=== PATIENT | male | born 2000 | race Caucasian/White ===

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

== ENCOUNTER 2019-02-11 15:19 | Emergency (ER) | payer MEDICAID, SELFPAY ==
[2019-02-11 15:23] VITALS: BP 141/80; PULSE 77; RESP 16; TEMP 36.7; O2SAT 98
--- NOTE | 2019-02-11 15:49 | ED.GENADUL_ITS ---
Discharge Plan Disposition Patient Disposition: HOME Condition: Good Discharge Details Chief Complaint: GenMedical Clinical Impression: Rectal bleed Primary Care Provider: Pamela Fregoso V ED Provider: Oliverio Dixon Home Meds and New Rx's Prescriptions: No Action hydroxyzine HCl 50 mg tablet 50 mg PO BID PRN (Reason: itching) Qty: 90 RF: 0 sertraline 100 mg tablet 100 mg PO DAILY Qty: 90 RF: 0 trazodone 50 mg tablet 50 mg PO QHS PRN (Reason: insomnia) Qty: 30 RF: 0 Discharge Instructions Instructions: Rectal Bleeding (ED) Additional Instructions: At this time there is no current evidence of bleeding. It is likely that you had a small hemorrhoid that caused the symptoms however you do need a colonoscopy for further evaluation of your colon to rule out more concerning etiologies. Please make sure to keep your stool soft by taking a pill of Colace every day. Drink plenty of fluids, follow-up closely with your PCP. We will schedule a surgical follow-up for you. If you notice any worsening of your symptoms, or any new symptoms such as vomiting, diarrhea, fever, chills, brock rtness of breath, chest pain, numbness, weakness, or fainting , please return immediately to the emergency department for reevaluation. Please follow up with your primary care provider as soon as possible for reassessment and reevaluation. As always, it was a pleasure participating in your medical care today. Referrals: Pamela Fregoso MD [Primary Care Provider] - Medical Decision Making This is a pleasant 18-year-old male who presents today for blood in his stools. Patient states that today he had some occasional hard stools, noticed some blood on his stools and in the toilet bowl and on the toilet paper, and then a subsequent episode of small amounts of what he felt blood clots that he defecated out. He had no pain cramping or searing sensation with any of this. He denies any recent rectal probing, anal intercourse, history of GI bleed, history of Crohn's or ulcerative colitis or colon cancer. Physical exam demonstrates an unremarkable rectal exam, no evidence of gross blood on digital rectal exam. Stool Hemoccult test was negative. Vital signs are notably benign, no evidence of significant anemia. With an unremarkable exam, negative stool Hemoccult, no blood on rectal exam, no other abnormalities I discussed options of imaging, labs, and outpatient evaluation. At this time through shared decision making process weighing the risks and benefits patient has requested to hold off in any additional labs or imaging, would like to follow-up with the surgeon. We had a long discussion regarding red flags for which to return for additional work-up. Signs and symptoms at this time appear most clinically consistent with internal or external hemorrhoid with subsequent rupture. With a benign abdominal exam signs and symptoms appear clinically inconsistent with an acute surgical abdomen requiring further intervention or imaging at this time. I have extensively reviewed the treatment plan and discharge instructions with the patient. I have addressed all patient concerns at this time. The patient was made aware of what symptoms to monitor for that would warrant a return to the emergency department. Discussed the plan with the patient, they demonstrate verbal understanding and agreement with our assessment and plan at this time. HPI General Date/Time Provider Initiated Documentation: 02/11/19 15:31 . HPI Narrative: This is a pleasant 18-year-old male with no significant past medical history who presents today for evaluation of blood in his stool. Patient states that occasionally he will have hard and soft stools, and then this morning after some harder stool he noticed some blood, initially on his toilet paper in his stool, however he had a second episode not too long later which felt to be more like pooping small clots. He has not had any bowel movement since then. He denies any abdominal pain, rectal pain, searing pain in his rectum. He denies any family history of colon cancer. He denies any vomiting or diarrhea. He denies any history of irritable bowel syndrome, colitis, Crohn's disease. Aside for his aforementioned symptoms he has no other complaints at this time. No other modifying factors. He denies any history of rectal bleeding in the past. He denies any history of anal intercourse. Related Data Home Medications Medication Instructions Recorded Confirmed hydroxyzine HCl 50 mg tablet 50 mg PO BID PRN #90 tab 02/10/19 02/11/19 sertraline 100 mg tablet 100 mg PO DAILY #90 tab 02/10/19 02/11/19 trazodone 50 mg tablet 50 mg PO QHS PRN #30 tab 02/10/19 02/11/19 Previous Rx's Medication Instructions Recorded hydroxyzine HCl 50 mg tablet 50 mg PO BID PRN #90 tab 02/10/19 sertraline 100 mg tablet 100 mg PO DAILY #90 tab 02/10/19 trazodone 50 mg tablet 50 mg PO QHS PRN #30 tab 02/10/19 Allergies Allergy/AdvReac Type Severity Reaction Status Date / Time No Known Allergies Allergy Verified 02/11/19 15:30 General Stated Complaint: GenMedical CHI: 3 Review of Systems Review of Systems All systems reviewed & are unremarkable except as noted in HPI and below PFSH Social History Smoking/Tobacco Use Status: Current every day Tobacco Type: cigarettes Alcohol Intake: current Alcohol Intake frequency: a few times a month Drug use: Daily Substance use type: marijuana Details: a little last night Do you feel safe at home: Yes Do you feel safe in your relationship?: Yes Exam Narrative Exam Narrative: 1.Const: Well-nourished, Well-developed, appearing stated age 2.Eyes: PERRL, no conjunctival injection, and symmetrical lids. 3.ENT: Atraumatic external nose and ears. Moist MM. Neck: Symmetric, trachea midline, No thyromegaly. 4.CVS: +S1/S2, No murmurs or gallops. Peripheral pulses 2+ and equal in all extremities. Brisk capillary refill in all extremities. 5.RESP: Unlabored respiratory effort. Clear to auscultation bilaterally. No wheezes rales or rhonchi 6.GI: Soft, Nontender/Nondistended, No hepatosplenomegaly. No guarding or rebound. Rectal exam demonstrates normal male rectum, no evidence of significant anal fissure, no signs of large prolapsed hemorrhoid. No gross blood or melena. Stool Hemoccult test is negative. 7.MSK: Normocephalic/Atraumatic, Extremities w/o deformity or ttp No cyanosis or clubbing, Normal movement of all extremities 8.Skin: Warm, Dry. No rashes or lesions. 9.Neuro: [facility] II-XII grossly intact. Sensation grossly intact, no focal neurologic deficits. 10.Psych: (AAO) x3. Appropriate mood and affect Course Vital Signs Temperature 36.7 C 02/11/19 15:23 Pulse 77 02/11/19 15:23 Respiratory Rate 16 02/11/19 15:23 Blood Pressure 141/80 H 02/11/19 15:23 Pulse Oximetry 98 02/11/19 15:23 Temperature 36.7 C 02/11/19 15:23 Temperature Source Skin 02/11/19 15:23 Pulse 77 02/11/19 15:23 Respiratory Rate 16 02/11/19 15:23 Respiratory Effort Non-Labored 02/11/19 15:29 Blood Pressure 141/80 H 02/11/19 15:23 Blood Pressure Position Sitting 02/11/19 15:23 Pulse Oximetry 98 02/11/19 15:23 Oxygen Delivery Method Room Air 02/11/19 15:23 Oxygen Flow Rate 0 02/11/19 15:23
--- NOTE | 2019-02-11 15:54 | NUR.NOTE ---
freferral faxed to [facility]ing Note:
[2019-02-11 16:00] VITALS: BP 141/80; PULSE 77; RESP 16; TEMP 36.7; O2SAT 98
[2019-02-11 18:06] VITALS: RESP 16
== END 2019-02-11 16:00 | disposition home or self-care (01) ==
PROVIDERS: Emergency Provider Student in an Organized Health Care Education/Training Program; PCP Pediatrics
DX: K62.5 Hemorrhage of anus and rectum (principal)
CPT/HCPCS: 99282

== ENCOUNTER 2020-04-30 08:46 | Outpatient (CLI) | payer MEDICAID, SELFPAY ==
[2020-05-02 22:52] LABS: Patient Race White; SARS-CoV-2 RNA Undetected (Undetected); SARS-CoV-2 Specimen Source Nasal
== END 2020-04-30 09:06 ==
PROVIDERS: PCP Pediatrics; Visit Provider Pediatrics
DX: Z11.59 Encounter for screening for other viral diseases (principal)
CPT/HCPCS: U0003

== ENCOUNTER 2021-10-10 19:04 | Outpatient (REF) | payer MEDICAID, SELFPAY ==
[2021-10-10 15:16] LABS: Abs Immature Grans 0.04 10^3/uL (0.0-0.06); Absolute Basophil Count 0.05 10^3/uL (0.0-0.2); Absolute Eosinophil Count 0.34 10^3/uL (0.0-0.7); Absolute Lymphocyte Count 2.15 10^3/uL (1.2-3.4); Absolute Monocyte Count 0.91 10^3/uL (0.1-0.8); Absolute Neutrophil Count 3.59 10^3/uL (1.2-6.7); Basophils % 0.7; Eosinophils % 4.8; HCT 43.9 % (40.0-50.0); HGB 15.3 g/dL (13.5-17.5); Immature Grans % 0.6; Lymphocytes % 30.4; MCH 32.1 pg (27.0-33.0); MCHC 34.9 % (32.0-36.0); MCV 92 fL (80-95); MPV 9.7 fL (8.0-11.0); Monocytes % 12.9; Neutrophils % 50.6; Platelet Count 342 10^3/uL (130-400); RBC 4.77 10^6/uL (4.36-5.78); RDW 12.1 % (11.8-14.1); RDW-SD 41.3 fL; WBC 7.08 10^3/uL (4.4-10.8)
[2021-10-10 15:35] LABS: ALT 82 U/L (16-63); AST 37 U/L (15-37); Albumin 4.2 g/dL (3.4-5.0); Alkaline Phosphatase 89 U/L (46-116); BUN 8 mg/dL (7-18); Bilirubin, Total 0.8 mg/dL (0.2-1.0); CREATININE 0.9 mg/dL (0.70-1.30); Calcium 9.2 mg/dL (8.5-10.1); Chloride 104 mmol/L (98-107); Glucose 93 mg/dL (74-106); Potassium 4.5 mmol/L (3.5-5.1); Sodium 139 mmol/L (136-145); TSH 2.23 uIU/mL (0.36-3.74); Total Protein 7.6 g/dL (6.4-8.2)
== END 2021-10-10 19:05 | disposition home or self-care (01) ==
LOC: NCHCN 19:04
PROVIDERS: Visit Provider Nurse Practitioner Family
DX: F41.8 Other specified anxiety disorders (principal); F12.10 Cannabis abuse, uncomplicated; F10.10 Alcohol abuse, uncomplicated; Z00.00 Encounter for general adult medical examination without abnormal findings
CPT/HCPCS: 80053; 84443; 85025

== ENCOUNTER 2022-01-22 16:41 | Outpatient (REF) | payer MEDICAID, SELFPAY ==
[2022-01-22 17:22] LABS: ALT 56 U/L (16-63); AST 44 U/L (15-37); Alkaline Phosphatase 78 U/L (46-116); Anion Gap 11.6 mmol/L (3-11); BUN 12 mg/dL (7-18); CO2 24.4 mmol/L (21.0-32.0); CREATININE 0.8 mg/dL (0.70-1.30); Calcium 9.1 mg/dL (8.5-10.1); Chloride 104 mmol/L (98-107); Glucose 102 mg/dL (74-106); Potassium 4.4 mmol/L (3.5-5.1); Sodium 140 mmol/L (136-145); Total Protein 7.4 g/dL (6.4-8.2)
[2022-01-23 08:07] LABS: HBs Antibody, Quant 4.2 mIU/mL (See Note); Hepatitis B Surface Ab Negative (See Note)
[2022-01-23 08:15] LABS: Hepatitis B Surface Ag Negative (Negative)
[2022-01-23 09:00] LABS: Hepatitis C Ab w Rflx HCV PCR Negative (Negative)
[2022-01-23 09:11] LABS: HIV-1/2 Ag & Ab Screen Negative (Negative)
[2022-01-23 10:43] LABS: Syphilis Serology (RPR) Negative (Negative)
[2022-01-23 15:11] LABS: Chlamydia Result Negative (Negative); GC Result Negative (Negative)
== END 2022-01-22 16:42 | disposition home or self-care (01) ==
LOC: NCHCN 16:41
PROVIDERS: Visit Provider Nurse Practitioner Family
DX: Z11.3 Encounter for screening for infections with a predominantly sexual mode of transmission (principal); F10.10 Alcohol abuse, uncomplicated; F41.8 Other specified anxiety disorders; R79.89 Other specified abnormal findings of blood chemistry
CPT/HCPCS: 80053; 86706; 86803; 87340; 87389; 87491; 87591; 86592

== ENCOUNTER 2022-07-16 11:18 | Outpatient (REF) | payer MEDICAID, SELFPAY ==
[2022-07-16 15:21] LABS: Abs Immature Grans 0.02 10^3/uL (0.0-0.06); Absolute Basophil Count 0.04 10^3/uL (0.0-0.2); Absolute Eosinophil Count 0.28 10^3/uL (0.0-0.7); Absolute Lymphocyte Count 1.94 10^3/uL (1.2-3.4); Absolute Monocyte Count 0.75 10^3/uL (0.1-0.8); Absolute Neutrophil Count 2.74 10^3/uL (1.2-6.7); Basophils % 0.7; Eosinophils % 4.9; HCT 41.4 % (40.0-50.0); HGB 14.1 g/dL (13.5-17.5); Immature Grans % 0.3; Lymphocytes % 33.6; MCHC 34.1 % (32.0-36.0); MCV 88 fL (80-95); MPV 10.5 fL (8.0-11.0); Neutrophils % 47.5; Platelet Count 268 10^3/uL (130-400); RDW 12.7 % (11.8-14.1); RDW-SD 41.2 fL; WBC 5.77 10^3/uL (4.4-10.8)
[2022-07-16 15:47] LABS: ALT 22 U/L (16-63); AST 23 U/L (15-37); Albumin 4.2 g/dL (3.4-5.0); Alkaline Phosphatase 64 U/L (46-116); Anion Gap 6.9 mmol/L (3-11); BUN 10 mg/dL (7-18); Bilirubin, Total 0.8 mg/dL (0.2-1.0); CO2 27.1 mmol/L (21.0-32.0); CREATININE 0.9 mg/dL (0.70-1.30); Calcium 9.7 mg/dL (8.5-10.1); Chloride 106 mmol/L (98-107); Estimated GFR 123.07 (mL/min/1.73m2); Glucose 98 mg/dL (74-106); Potassium 4.4 mmol/L (3.5-5.1); Sodium 140 mmol/L (136-145); TSH (W/Ref FT4) 1.13 uIU/mL (0.36-3.74); Total Protein 7.1 g/dL (6.4-8.2)
== END 2022-07-16 11:19 | disposition home or self-care (01) ==
LOC: NCHCN 11:18
PROVIDERS: Visit Provider Nurse Practitioner Family
DX: R79.89 Other specified abnormal findings of blood chemistry (principal); F41.8 Other specified anxiety disorders; R63.4 Abnormal weight loss; F10.10 Alcohol abuse, uncomplicated
CPT/HCPCS: 80053; 84443; 85025

== ENCOUNTER 2023-04-13 16:13 | Outpatient (REF) | payer MEDICAID, SELFPAY ==
[2023-04-13 16:18] LABS: Abs Immature Grans 0.01 10^3/uL (0.0-0.06); Absolute Basophil Count 0.04 10^3/uL (0.0-0.2); Absolute Eosinophil Count 0.35 10^3/uL (0.0-0.7); Absolute Monocyte Count 0.52 10^3/uL (0.1-0.8); Absolute Neutrophil Count 1.92 10^3/uL (1.2-6.7); Basophils % 0.9; Eosinophils % 7.5; HCT 40.1 % (40.0-50.0); HGB 14.2 g/dL (13.5-17.5); Immature Grans % 0.2; Lymphocytes % 38.8; MCH 32.1 pg (27.0-33.0); MCHC 35.4 % (32.0-36.0); MCV 91 fL (80-95); MPV 10.1 fL (8.0-11.0); Monocytes % 11.2; Neutrophils % 41.4; Platelet Count 231 10^3/uL (130-400); RBC 4.43 10^6/uL (4.36-5.78); RDW 12.8 % (11.8-14.1); RDW-SD 42.4 fL; WBC 4.64 10^3/uL (4.4-10.8)
[2023-04-13 17:04] LABS: ALT 41 U/L (16-63); AST 29 U/L (15-37); Alkaline Phosphatase 61 U/L (46-116); Anion Gap 9.1 mmol/L (3-11); BUN 22 mg/dL (7-18); Bilirubin, Total 1.1 mg/dL (0.2-1.0); CO2 26.9 mmol/L (21.0-32.0); Calcium 9.3 mg/dL (8.5-10.1); Chloride 109 mmol/L (98-107); Estimated GFR 108.46 (mL/min/1.73m2); Glucose 87 mg/dL (74-106); Potassium 4.4 mmol/L (3.5-5.1); Sodium 145 mmol/L (136-145); TSH (W/Ref FT4) 0.89 uIU/mL (0.36-3.74); Total Protein 6.7 g/dL (6.4-8.2)
== END 2023-04-13 16:14 | disposition home or self-care (01) ==
LOC: NCHCN 16:13
PROVIDERS: Visit Provider Nurse Practitioner Family
DX: F10.11 Alcohol abuse, in remission (principal); F41.8 Other specified anxiety disorders; F17.210 Nicotine dependence, cigarettes, uncomplicated
CPT/HCPCS: 80053; 84443; 85025

== ENCOUNTER 2023-09-10 21:50 | Emergency (ER) | payer MEDICAID, SELFPAY ==
[2023-09-10 21:52] VITALS: BP 155/78; PULSE 90; RESP 16; TEMP 36.1; O2SAT 100
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
[2023-09-10] MEDS: Ketorolac 15 MG/ML VIAL IM (22:26)
[2023-09-10] MEDS: Bacitracin 30 GM TUBE TP (22:27)
[2023-09-10 22:43] VITALS: RESP 18
== END 2023-09-10 22:47 | disposition home or self-care (01) ==
LOC: ER 22:24
PROVIDERS: Emergency Provider Emergency Medicine
DX: T23.121A Burn of first degree of single right finger (nail) except thumb, initial encounter (principal); T31.0 Burns involving less than 10% of body surface; F17.210 Nicotine dependence, cigarettes, uncomplicated; X10.2XXA Contact with fats and cooking oils, initial encounter; Y93.G3 Activity, cooking and baking
CPT/HCPCS: 99283; J1885

== ENCOUNTER 2024-02-23 11:50 | Emergency (ER) | payer MEDICAID, SELFPAY ==
[2024-02-23 11:52] VITALS: BP 152/109; PULSE 110; RESP 16; TEMP 36.4; O2SAT 97
--- NOTE | 2024-02-23 12:24 | W.ED.GENAD ---
Discharge Plan Disposition Patient Disposition: Home Condition: Stable Discharge Details Clinical Impression: Alcohol abuse Primary Care Provider: XIOMARA MURRY ED Provider: Yahir Hernandez Home Meds and New Rx's Prescriptions: New chlordiazepoxide HCl 25 mg capsule See Rx Instructions .ROUTE .COMPLEX PRNQty: 15 0RF Rx Instructions: take 50mg every 6 hours for 1 day, then 25mg every 6 hours on day 2, then 25mg every 12 hours on day 3 and then 25mg at night on day 4 Continued citalopram 20 mg tablet 20 mg PO DAILY Patient Comments: TAKE ONE TABLET BY MOUTH EVERY DAY albuterol sulfate [Ventolin HFA] 90 mcg/actuation HFA aerosol inhaler 2 inh INHALATION Q6H PRN Patient Comments: INHALE ONE TO TWO PUFFS BY MOUTH EVERY 4 TO 6 HOURS NEEDED Discharge Instructions Additional Instructions: do not drink alcohol while taking librium follow up with your primary care provider and also reach out to detox centers if you feel more ill or have thoughts of self harm return to the emergency department HPI General Mode of arrival: ambulatory. Date/Time Provider Initiated Documentation: 02/23/24 11:52. Limitations to Documentation: no limitations. Information obtained by: patient. History of Present Illness 23 year old M presents to the emergency department with the chief complaint of excessive alcohol use, described as severe, Patient started experiencing this year(s) (1) and it has been constant. No relieving factors improve symptom(s), No exacerbating factors reported . Patient notes denies chest pain, fever/chills and shortness of breath. Patient did receive the following treatments prior to arrival, none Related Data Home Medications ?Medication ?Instructions ?Recorded ?Confirmed albuterol sulfate 90 mcg/actuation 2 inh inhalation Q6H PRN 09/10/23 02/23/24 aerosol inhaler (Ventolin HFA) citalopram 20 mg tablet 20 mg PO DAILY 09/10/23 02/23/24 chlordiazepoxide HCl 25 mg capsule See Rx Instructions .Route 02/23/24 .COMPLEX PRN #15 caps Previous Rx's ?Medication ?Instructions ?Recorded chlordiazepoxide HCl 25 mg capsule See Rx Instructions .Route 02/23/24 .COMPLEX PRN #15 caps Allergies Allergy/AdvReac Type Severity Reaction Status Date / Time No Known Allergies Allergy Verified 02/23/24 11:58 General Stated Complaint: ETOHWithdr CHI: 2 Review of Systems All systems reviewed & are unremarkable except as noted in HPI and below Constitutional Constitutional: Denies chills, Denies fever(s) and Denies weakness Cardiovascular Cardiovascular: Denies chest pain and Denies dyspnea Respiratory Respiratory: Denies cough and Denies dyspnea Gastrointestinal Gastrointestinal: Denies abdominal pain, Denies nausea and Denies vomiting Musculoskeletal Musculoskeletal: Denies joint swelling Neurologic Neurologic: Denies weakness Psychiatric Psychiatric: Denies depression and Reports other (depression) Course Vital Signs Vital signs: Vital Signs Temperature 36.4 C 02/23/24 11:52 Pulse 110 H 02/23/24 11:52 Respiratory Rate 16 02/23/24 11:52 Blood Pressure 152/109 H 02/23/24 11:52 Pulse Oximetry 97 02/23/24 11:52 Temperature 36.4 C 02/23/24 11:52 Temperature Source Skin 02/23/24 11:52 Pulse 110 H 02/23/24 11:52 Respiratory Rate 16 02/23/24 11:52 Blood Pressure 152/109 H 02/23/24 11:52 Blood Pressure Position Sitting 02/23/24 11:52 Pulse Oximetry 97 02/23/24 11:52 Oxygen Delivery Method Room Air 02/23/24 11:52 Oxygen Flow Rate 0 02/23/24 11:52 Medical Decision Making 23-year-old male who states he has been drinking heavily for over a year, states he drinks at least a hard alcohol a day comes in with concerns states that he did much entirely interested in ways to stop. He also has noted some depression and thoughts of self-harm though he does have a specific plan. He says that he last drink this morning, he is currently clinically sober, oriented x 4 with a normal gait, has no tremors or other concerning findings at this time. Abdomen is soft and nontender. Given his statements that he has been depressed and having thoughts of potential self-harm will check a CBC, CMP, alcohol level, acetaminophen and salicylate level. Will keep him on CIWA precautions and give a dose of Librium as he states he normally does start developing signs of withdrawal after few hours of drinking alcohol. Will have it disaster recovery manager meet with him and a once medically cleared to have mental health evaluate him. Patient has been stable, labs unremarkable other than alcohol of over 200 which is surprising given he is clinically sober. He feels better after Librium after further discussion with him he denies any active suicidal. He says he does get depressed here and there when he realizes how [id number] his drinking spent. He met with it disaster recovery manager. He does not want to wait to speak with an [facility] and given the no specific plan when he passed earlier and main issue is depression and alcohol abuse do not feel he needs to be staying or have enough to do an involuntary hold of him. I discussed with him a Librium taper as an outpatient and he is willing to try this and knows that he cannot drink alcohol while taking this. Differential Diagnosis Differential Diagnosis: Alcohol abuse, depression Lab Data Lab results reviewed: Yes I reviewed the patient's lab results. Quality:SDOH Health Related Social Needs: No Data to Display PFSH All Active Problems (Updated 10/11/23 @ 00:06 by MEG STALLINGS) Alcohol abuse (Chronic) Substance use disorder (Chronic) Chronic marijuana use. + CRAFFT for alcohol use Anxiety (Acute) Medical History (Updated 10/11/23 @ 00:06 by MEG STALLINGS) Closed right arm fracture Closed left arm fracture X2 Varicella AGE 4 Family History Mother No problems noted. Father Essential hypertension Hyperlipidemia Other ALS (amyotrophic lateral sclerosis) paternal Alcohol abuse paternal, maternal Essential hypertension paternal Personal history of malignant neoplasm PGF-skin Heart disease glaufgbd-aenizsqubmfmbw-GTBH - goes thru the male line paternal cousin with SVT Hyperlipidemia PGM Mental disorder pat uncle- anxiety, pat great uncle commited suicide Myocardial infarction PGF, maternal side Stroke PGGF Cardiomyopathy PGF-ZEUS, all of his siblings as well Asthma brother-outgrown, paternal side Social History Smoking/Tobacco Use Status: Current every day Tobacco Type: cigarettes Smoking risk assessment performed?: Yes Alcohol Intake: current Alcohol Intake frequency: 3 or more drinks per day Drug use: Occasionally Substance use type: marijuana Details: a little last night Do you feel safe at home: Yes Do you feel safe in your relationship?: Yes
[2024-02-23 12:25] LABS: Bilirubin Negative (Negative); Blood Negative (Negative); Clarity Clear (Clear); Glucose Negative (Negative); Ketones Negative (Negative); Leukocyte Esterase Negative (Negative); Nitrite Negative (Negative); Specific Gravity 1.015 (1.005-1.025); Urobilinogen 0.2 mg/dL (Up to 0.2)
[2024-02-23 12:33] LABS: Abs Immature Grans 0.02 10^3/uL (0.0-0.06); Absolute Basophil Count 0.05 10^3/uL (0.0-0.2); Absolute Eosinophil Count 0.09 10^3/uL (0.0-0.7); Absolute Lymphocyte Count 1.86 10^3/uL (1.2-3.4); Absolute Monocyte Count 0.82 10^3/uL (0.1-0.8); Absolute Neutrophil Count 2.78 10^3/uL (1.2-6.7); Basophils % 0.9 %; Eosinophils % 1.6 %; HCT 46.4 % (40.0-50.0); HGB 16.2 g/dL (13.5-17.5); Immature Grans % 0.4 %; Lymphocytes % 33.1 %; MCH 32.4 pg (27.0-33.0); MCHC 34.9 % (32.0-36.0); MCV 93 fL (80-95); MPV 8.4 fL (8.0-11.0); Monocytes % 14.6 %; Neutrophils % 49.4 %; Platelet Count 253 10^3/uL (130-400); RDW-SD 44.2 fL; WBC 5.62 10^3/uL (4.4-10.8)
[2024-02-23 12:34] LABS: *AMPHETAMINES SCREEN URINE Negative (Negative); *BARBITURATES SCREEN URINE Negative (Negative); *BENZODIAZEPINES SCREEN URINE Negative (Negative); Cannabinoids THC Negative (Negative); Cocaine Screen,Urine Negative (Negative); OPIATES URINE SCREEN Negative (Negative); Tricyclic Antidepressants Negative (Negative)
[2024-02-23] MEDS: chlordiazePOXIDE 25 MG CAP 50 MG PO (12:37)
[2024-02-23 13:08] LABS: Acetaminophen < 2 ug/mL (10-30); Salicylate < 2.8 mg/dL (<2.8)
[2024-02-23 13:16] LABS: ETHANOL BLOOD 295.9 mg/dL (<10); TSH (W/Ref FT4) 1.23 uIU/mL (0.36-3.74)
[2024-02-23] MEDS: Nicotine 21 MG/24 HR PATCH TD (13:18)
--- OUTSIDE RECORDS SUMMARY | 2024-02-23 13:26 | XMS_ITS | Encounter Summary ---
Author Organization [facility] Address [address] [place] [address] Care Team Providers Care Raw Mill Operator Name Role Phone Unknown, Provider Primary Care Provider [phone] Encounter Details Date Type Department Care Team (Late st Contact Info) Description 01/22/2022 Lab Requisition [facility] Pathology & Laboratory Medicine - [facility] [address] [place] [address] Outr Resulting Lab, Provider Social History Tobacco Use Types Packs/Day Years Used Date Smoking Tobacco: Never Assessed Sex and Gender Information Value Date Recorded Sex Assigned at Not on file Gender Identity Not on file Sexual Orientation Not on file documented as of this encounter Plan of Treatment Not on file documented as of this encounter Procedures Procedure Name Priority Date/Time Associated Diagnosis Comments HIV 1/2 ANTIGEN AND ANTIBODY, 4TH GENERATION Routine 01/22/2022 10:45 EDT documented in this encounter Results * HIV 1/2 ANTIGEN AND ANTIBODY, 4TH GENERATION (01/22/2022 10:45 EDT) HIV 1 and 2 Antibody/p24 Antigen, 4th Generation Negative Negative 01/23/2022 9:[address] [facility] Comment:If acute HIV-1 infec tion is suspected in a high risk patient, submit plasma specimen for HIV-1 RNA quantitation test. Blood VENOUS BLOOD / Unknown 01/22/2022 10:45 EDT 01/22/2022 21:[address] [facility] - 01/23/2022 9:07 EDT Fourth Generation assay performed on the Siemens VideoSurfaur XPT. Provider Outr Resulting Lab IMMUNOLOGY A ND SEROLOGY ORDERABLES [facility] [address] [place] [address] documented in this encounter Visit Diagnoses Not on filedocumented in this encounter Care Teams Raw Mill Operator Relationship Specialty Start Date End Date Unknown, Provider, PCP - General 12/18/18 documented as of this encounter
--- OUTSIDE RECORDS SUMMARY | 2024-02-23 13:26 | XMS_ITS | Encounter Summary ---
Author Organization [facility] Address [facility] [place] [address] Care Team Providers Care Gluer Machine Operator Name Role Phone Zenobia Martin MD, Pamela Primary Care Provider Reason for Visit * Reason Comments Other FAM HX CM Encounter Details Date Type Department Care Team (Latest Contact Info) Description 01/11/2016 3:00 PM EDT Office Visit Pediatric Cardiology at [facility] [place] [phone] Ayush Taveras MD [facility] [address] [place] [address] Family history of cardiomyopathy Social History Tobacco Use Types Packs/Day Years Used Date Smoking Tobacco: Passive Smo ke Exposure - Never Smoker Smokeless Tobacco: Never Sex and Gender Information Value Date Recorded Sex Assigned at Not on file Gender Identity Not on file Sexual Orientation Not on file documented as of this encounter Last Filed Vital Signs Vital Sign Reading Time Taken Comments Blood Pressure 134/72 01/11/2016 3:02 PM EDT Pulse 73 01/11/2016 3:02 PM EDT Temperature - - Respiratory Rate 16 01/11/2016 3:02 PM EDT Oxygen Saturation 100% 01/11/2016 3:02 PM EDT Inhaled Oxygen Concentration - - Weight 105.7 kg (233 lb 0.4 oz) 01/11/2016 3:02 PM EDT Height 176.5 cm (5' 9.49) 01/11/2016 3:02 PM ED T Body Mass Index 33.93 01/11/2016 3:02 PM EDT Body Mass Index Percentile 98.23% 01/11/2016 3:0 2 PM EDT Growth Chart: CDC (Boys, 2-2 0 Years) documented in this encounter Patient Instructions * Patient Instructions* Ayush Taveras MD - 01/11/2016 3:00 PM EDT Assessment: Dionicio appears normal from the cardiovascular standpoint with no evidence for heart disease. The echocardiogram today is normal and is reassuring, with no evidence for a cardiomyopathy. We previously discussed the role in gene testing in relatives of patients with HCM. The grandfatheris the index case, and has been able to have gene testing covered by his insurer (Medicare). We again discussed this at length today. With Dionicio's family history and without genetic testing, we must consider him to be at 25% risk ofdeveloping HCM. As he gets older, the likelihood of HCM becoming apparent gets less, but will neverbe zero. Continued surveillance with echocardiography is therefore indicated. Recommendations: I have recommended gene testing as the preferred approach, and scheduled screening by echocardiography if gene testing is not available, or if the grandfather had a negative test. There is no indication at this time for any limitations or restrictions in Dionicio' activity. SBE precautions are not indicated. Follow-up: Two years with echocardiogram. documented in this encounter Progress Notes * Ayush Taveras MD - 01/11/2016 3:00 PM EDT Images from the original note were not included. Patient: Primary Care Provider: Requesting Provider: Dionicio Wilkinson [address] [facility] [phone] PAMELA FREGOSO MD (Inactive) [address] [facility] [address] Pamela Fregoso Md [address] [place] [address] (home) : 2000 Age/Gender: 15 y.o. male Dionicio is a 15 y.o. old ( 2000) child seen in the Pediatric Cardiology Clinic at [facility] on 01/11/2016 with the following problems: Patient Active Problem List Diagnosis ??? FHx: atrial fibrillation Paternal grandfather diagnosed with atrial fibrillation in 2002. Reports taking metoprolol and warfarin for 'years' ??? FHx: melanoma PGF and his siblings ??? Family history of cardiomyopathy PGF, Holden Wilkinson (: 06-30-1937) diagnosed with mildly obstructive hypertrophic cardiomyopathy in 2000. Last echo in 2011: left ventricle asymetric, septal hypertrophy without LV outflow tract obstruction. Estimated LVEF = 75%. Both atria are greatly dilated. RV is normal. 08-31-15 Genetic testin g not done due to cost per Father. There is a family history of premature deaths from heart disease, but no other family member diagnosed with HCM. The PGF has 3 male children who were screened around the time of his diagnosis; all were reportedlynormal. Neither has been diagnosed with HCM. There is also a daughter who has not been screened, although she was treated at [facility] for breast cancer. Father, Mauro Wilkinson (: 07-28-1971) had echo as teen (reported normal) and on 09-15-14 @ [facility]: normal study. The left ventricular sizethickness and function was normal. Estimated ejection fraction was 60-65%. No wall motion abnormalities ??? Fracture of left forearm x2 ??? Fracture of right forearm x1 ??? Delayed immunizations Interim History: Dionicio has been a healthy child since the last visit with no symptoms referable to the cardiovascular system. Dionicio has had no complaints of chest pain, dyspnea, fatigue, palpitations and syncope. He has a normal exercise tolerance with no difficulty keeping up with his peers. Dionicio has had no recent hospitalizations or surgery. Family History: Dionicio is here today with his grandfather. Additional details of the family history as noted in theProblem List. Physical Exam: Vitals: 01/11/16 1502 BP: 134/72 BP Location (NBP): Right arm Pulse: 73 Resp: 16 SpO2: 100% Weight: (!) 105.7 kg (233 lb 0.4 oz) Height: 176.5 cm (5' 9.49) >99 %ile based on CDC 2-20 Years [id number] data using vitals from 01/11/2016. 60 %ile based on CDC 2-20 Years [id number] data using vitals from 01/11/2016. Body mass index is 33.93 kg/(m^2). Dionicio is a very pleasant, healthy- appearing, overweight young man in no distress. I did not repeat Dionicio's exam today. ECHO: The echocardiogram obtained today was reviewed and demonstrates: 1. Normal exam. 2. No anatomic abnormality was seen with complete standard exam. 3. Left and right ventricular chamber size, wall thickness and systolic performance appear normal. 4. There is no pathologic valvar insufficiency. 5. See remainder of report for additional findings. Assessment: Dionicio appears normal from the cardiovascular standpoint with no evidence for heart disease. The echocardiogram today is normal and is reassuring, with no evidence for a cardiomyopathy. We previously discussed the role in gene testing in relatives of patients with HCM. The grandfatheris the index case, and has been able to have gene testing covered by his insurer (Medicare). We again discussed this at length today. With Dionicio's family history and without genetic testing, we must consider him to be at 25% risk ofdeveloping HCM. As he gets older, the likelihood of HCM becoming apparent gets less, but will neverbe zero. Continued surveillance with echocardiography is therefore indicated. Recommendations: I have recommended gene testing as the preferred approach, and scheduled screening by echocardiography if gene testing is not available, or if the grandfather had a negative test. There is no indication at this time for any limitations or restrictions in Dionicio' activity. SBE precautions are not indicated. Follow-up: Two years with echocardiogram. All of this 25 minute encounter were spent in direct consultation, and care coordination as outlined above. documented in this encounter Plan of Treatment Not on file documented as of this encounter Visit Diagnoses Diagnosis Family history of cardiomyopathy Family history of other cardiovascular diseases documented in this encounter Care Teams Gluer Machine Operator Relationship Specialty Start Date End Date Pamela Fregoso MD [address] [place] [address] [place] [address] PCP - General 05/07/10 documented as of this encounter
--- OUTSIDE RECORDS SUMMARY | 2024-02-23 13:26 | XMS_ITS | Encounter Summary ---
Author Organization [facility] Address [facility] [place] [address] Care Team Providers Care Saddle Maker Name Role Phone Zenobia Martin MD, [place] Primary Care Provider [phone] Encounter Details Date Type Department Care Team (Latest Contact Info) Description 01/11/2016 1:15 PM EDT - 01/11/2016 11:59 PM EDT Hospital Encounter Non-Invasive Cardiology Lab [facility] [place] [address] Ayush Taveras MD [facility] [place] [address] Family history of cardiomyopathy Discharge Disposition: Home Social History Tobacco Use Types Packs/Day Years [...] Procedure Name Priority Date/Time Associated Diagnosis Comments ECHO COMPLETE Routine 01/11/2016 3:05 PM EDT Family history of cardiomyopathy documented in this encounter Results * ECHO COMPLETE (01/11/2016 3:05 PM EDT) Anatomical Region Laterality Modality Other 01/11/2016 Narrative 01/11/2016 4:53 PM EDT Procedure: ?Pediatric Echocardiogram Patient: ?MIKA Aparicio ? (Age): 2000(15y) ? Med Rec#: ? [id number] ?Sex: ?M ? Site Loc: ? [facility] ?Ht / Wt: ??175(cm)/91(kg) Pt. Loc: ?Pediatrics ?BSA: ?2.127 ([facility]) Study Date: ?? 01/11/2016 ?Pt. Type: Study Quality: ? Referring: Ayush Taveras B. ([id number]) Referring: MATTHEW Reading: Ayush Taveras B. ([id number]) Orthotics Prosthetics Assistant: Oliverio Valle Diagnosis: *ICD-10-PCS Family history of ischemic heart disease and other diseases of the circulatory system (Z82.49) Rhythm: ? Sinus BP: ? 155/78 SUMMARY: 1. Normal exam. 2. No anatomic abnormality was seen with complete standard exam. 3. Left and right ventricular chamber size, wall thickness and systolic performance appear normal. 4. There is no pathologic valvar insufficiency. 5. See remainder of report for additional findings. FINDINGS: ? Situs And Relations ?There is levocardia with visceral and atrial situs solitus, atrioventricular concordance (D-looped ventricles) and normally related great arteries {S,D,S}. Venous Connections ?There are normal systemic venous connections, with the superior and inferior vena cavae returning to the right atrium. ?The right upper pulmonary vein drains normally to the left atrium. ?The right lower pulmonary vein is not seen. ?The left upper pulmonary vein drains normally to the left atrium. ?The left lower pulmonary vein is not seen with this study. Atrial Septum ?The interatrial septum is intact with no evidence of an atrial septal defect or patent foramen ovale. Atria ?The right and left atria are of normal size. Av Valves ?The tricuspid valve is functionally and structurally normal. ?There is mild tricuspid valve regurgitation. ?The mitral valve is normal in structure with no stenosis or regurgitation. ?The mitral valve is functionally and structurally normal. ?There is no mitral valve regurgitation. Outflow Tracts ?The right and left ventricular outflow tracts have normal size and geometry, without obstruction or narrowing. Ventricles ?The right ventricle has normal chamber size, wall thickness and systolic function. ?The left ventricle has normal chamber size, wall thickness and systolic function. Ventricular Septum ?The interventricular septum is intact with no evidence of a ventricular septal defect. Semilunar Valves ?The pulmonary valve annulus size is normal. ?The pulmonary valve leaflets are of normal thickness. ?There is no pulmonic valve stenosis. ?There is mild pulmonary valve insufficiency. ?The aortic valve is normal with three leaflets, no stenosis, or insufficiency. Aortic Pulmonary Root ?The pulmonary root and sinuses are normal without dilatation or stenosis. ??The aorta sinuses of Valsalva and sinotubular junction are normal without stenosis or dilation. Thoracic Arteries ?The main and branch pulmonary arteries are normal in size and configuration, without narrowing or dilatation. ?There is no patent ductus arteriosus. ?The aortic arch is normal in size, intact, without narrowing, dilatation or a coarctation. ?There is a left sided aortic arch. Coronary Arteries ?The left main coronary artery originates normally from the left coronary sinus. ?The right coronary artery originates normally from the right coronary sinus. Effusion ?There is no pericardial or pleural effusion noted. Chambers MM ?Value ?Units (Range) ? Z Score ? IVSd MM ? 7 ?mm (7.29 - 13.89) ?? -2.2 ? LVPWd MM ?8 ?mm (7.17 - 12.65) ?? -1.4 ? LVEDd dim MM ?50 ? mm (45.49 - 61.69) ??-0.9 ? LVEDd dim MM / BSA ??23.51 ?mm/m2 ? LVEDs dim MM ?31 ? mm (26.83 - 42.71) ??-0.9 ? LVEDs dim MM / BSA ??14.57 ?mm/m2 ? LV FS MM ?38 ? % ? EF (Teichholz) MM ?? 68 ? % ? Tricuspid Valve ?Value ?Units (Range) ? Z Score ? TR Vmax ? 2.18 ? m/s ? TR peak gradient ?19.01 ?mm Hg ? RAP ? 3 ?mm Hg ? RVSP ?22 ? mm Hg ? Aorta ?Value ?Units (Range) ? Z Score ? AV yared diam 2D ?22 ? mm (18.34 - 27.34) ??-0.4 ? Ao root diam 2D ? 29 ? mm (23.92 - 37.32) ??-0.5 ? Ao root diam (2D) / 13.63 ?mm/m2 ? Ao STJ diam ? 25 ? mm (19.66 - 32.34) ??-0.3 ? Asc Ao diam (SSN) ?? 24 ? mm ? All Z scores are estimated This report has been electronically signed by: Auysh Taveras MD ? 01/11/2016 16:53:23 Images reviewed and interpretation verified [facility] Cardiac Ultrasound Laboratory Procedure Note Ayush Taveras MD - 01/11/2016 Procedure: Pediatric Echocardiogram Patient: MIKA Aparicio (Age): 2000(15y) Med Rec#: [id number] Sex: M Site Loc: [facility] Ht / Wt: 175(cm)/91(kg) Pt. Loc: Pediatrics BSA: 2.127 ([facility]) Study Date: 01/11/2016 Pt. Type: Study Quality: Referring: Ayush Taveras B. ([id number]) Referring: MATTHEW Reading: Ayush Taveras B. ([id number]) Orthotics Prosthetics Assistant: Oliverio Valle Diagnosis: *ICD-10-PCS Family history of ischemic heart disease and other diseases of the circulatory system (Z82.49) Rhythm: Sinus BP: 155/78 SUMMARY: 1. Normal exam. 2. No anatomic abnormality was seen with complete standard exam. 3. Left and right ventricular chamber size, wall thickness and systolic performance appear normal. 4. There is no pathologic valvar insufficiency. 5. See remainder of report for additional findings. FINDINGS: Situs And Relations There is levocardia with visceral and atrial situs solitus, atrioventricular concordance (D-looped ventricles) and normally related great arteries {S,D,S}. Venous Connections There are normal systemic venous connections, with the superior and inferior vena cavae returning to the right atrium. The right upper pulmonary vein drains normally to the left atrium. The right lower pulmonary vein is not seen. The left upper pulmonary vein drains normally to the left atrium. The left lower pulmonary vein is not seen with this study. Atrial Septum The interatrial septum is intact with no evidence of an atrial septal defect or patent foramen ovale. Atria The right and left atria are of normal size. Av Valves The tricuspid valve is functionally and structurally normal. There is mild tricuspid valve regurgitation. The mitral valve is normal in structure with no stenosis or regurgitation. The mitral valve is functionally and structurally normal. There is no mitral valve regurgitation. Outflow Tracts The right and left ventricular outflow tracts have normal size and geometry, without obstruction or narrowing. Ventricles The right ventricle has normal chamber size, wall thickness and systolic function. The left ventricle has normal chamber size, wall thickness and systolic function. Ventricular Septum The interventricular septum is intact with no evidence of a ventricular septal defect. Semilunar Valves The pulmonary valve annulus size is normal. The pulmonary valve leaflets are of normal thickness. There is no pulmonic valve stenosis. There is mild pulmonary valve insufficiency. The aortic valve is normal with three leaflets, no stenosis, or insufficiency. Aortic Pulmonary Root The pulmonary root and sinuses are normal without dilatation or stenosis. The aorta sinuses of Valsalva and sinotubular junction are normal without stenosis or dilation. Thoracic Arteries The main and branch pulmonary arteries are normal in size and configuration, without narrowing or dilatation. There is no patent ductus arteriosus. The aortic arch is normal in size, intact, without narrowing, dilatation or a coarctation. There is a left sided aortic arch. Coronary Arteries The left main coronary artery originates normally from the left coronary sinus. The right coronary artery originates normally from the right coronary sinus. Effusion There is no pericardial or pleural effusion noted. Chambers MM Value Units (Range) Z Score IVSd MM 7 mm (7.29 - 13.89) -2.2 LVPWd MM 8 mm (7.17 - 12.65) -1.4 LVEDd dim MM 50 mm (45.49 - 61.69) -0.9 LVEDd dim MM / BSA 23.51 mm/m2 LVEDs dim MM 31 mm (26.83 - 42.71) -0.9 LVEDs dim MM / BSA 14.57 mm/m2 LV FS MM 38 % EF (Teichholz) MM 68 % Tricuspid Valve Value Units (Range) Z Score TR Vmax 2.18 m/s TR peak gradient 19.01 mm Hg RAP 3 mm Hg RVSP 22 mm Hg Aorta Value Units (Range) Z Score AV yared diam 2D 22 mm (18.34 - 27.34) -0.4 Ao root diam 2D 29 mm (23.92 - 37.32) -0.5 Ao root diam (2D) / 13.63 mm/m2 Ao STJ diam 25 mm (19.66 - 32.34) -0.3 Asc Ao diam (SSN) 24 mm All Z scores are estimated This report has been electronically signed by: Ayush Taveras MD 01/11/2016 16:53:23 Images reviewed and interpretation verified [facility] Cardiac Ultrasound Laboratory Ayush Taveras MD ECHO ORDERABLES documented in this encounter Visit Diagnoses Diagnosis Family history of cardiomyopathy Family history of other cardiovascular diseases documented in this encounter Care Teams Saddle Maker Relationship Specialty Start Date End Date Pamela Fregoso MD [address] [place] [address] PCP - General 05/07/10 documented as of this encounter
--- OUTSIDE RECORDS SUMMARY | 2024-02-23 13:26 | XMS_ITS | Encounter Summary ---
Author Organization [facility] Address [facility] [place] [address] Care Team Providers Care Cigar Tobacco Processing Supervisor Name Role Phone Zenobia Martin MD, Pamela Primary Care Provider Encounter Details Date Type Department Care Team (Late st Contact Info) Description 01/13/2018 Telephone [place] [phone] Ayush Huerta MD [facility] [place] [address] Social History Tobacco Use Types Packs/Day Years Used Date Smoking Tobacco: Passive Smo ke Exposure - Never Smoker Smokeless Tobacco: Never Sex and Gender Information Value Date Recorded Sex Assigned at Not on file Gender Identity Not on file Sexual Orientation Not on file documented as of this encounter Miscellaneous Notes * Telephone Encounter - Ynes Muñoz - 01/13/2018 2:59 PM EDT RECALL REPORT DATE OF RECALL: 01/30/18 PHONE CALL: 12/22/17 01/13/18 LETTERS SENT : 01/13/18 FOLLOW UP NEEDED: ECHO DIAGNOSIS : FAM HX CM PRODIVER: HUERTA documented in this encounter Plan of Treatment Not on file documented as of this encounter Visit Diagnoses Not on filedocumented in this encounter Care Teams Cigar Tobacco Processing Supervisor Relationship Specialty Start Date End Date Pam[place] [address] PCP - General 05/07/10 documented as of this encounter
--- OUTSIDE RECORDS SUMMARY | 2024-02-23 13:26 | XMS_ITS | Encounter Summary ---
Author Organization [facility] Address [address] [place] [address] Care Team Providers Care Microsoft Bi Consultant Name Role Phone Unknown, Provider Primary Care Provider Encounter Details Date Type Department Care Team (Late st Contact Info) Description 01/22/2022 Lab Requisition [facility] Pathology & Laboratory Medicine - [place] [address] [place] [address] Outr Resulting Lab, Provider Social History Tobacco [...] Procedure Name Priority Date/Time Associated Diagnosis Comments HEPATITIS C AB W REFLEX TO HCV RNA BY PCR Routine 01/22/2022 10:45 EDT HEPATITIS B SURFACE ANTIBODY Routine 01/22/2022 10:45 EDT HEPATITIS B SURFACE ANTIGEN Routine 01/22/2022 10:45 EDT documented in this encounter Results * HEPATITIS B SURFACE ANTIBODY (01/22/2022 10:45 EDT) Hep B Surface Ab, Quantitative 4.2 See Note mIU/mL 01/23/2022 8:02 EDT [facility] Comment: Reference Range for Hep B Surface Ab, Quant: Positive: >= 10.0 mIU/mL Negative: ??< 10.0 mIU/mL Patient is presumed to not be immune to infection with Hepatitis B Virus. Hep B Surface Ab, Qualitative Negative See Note 01/23/2022 8:02 EDT [facility] Comment: Reference Range for Hep B Surface Ab, Qual: Unvaccinated: ??Negative Vaccinated: ??Positive Blood VENOUS BLOOD / Unknown 01/22/2022 10:45 EDT 01/22/2022 21:28 EDT Provider Outr Resulting Lab CHEMISTRY & BLOOD GAS ORDERABLES [facility] [address] [place] [address] * HEPATITIS B SURFACE ANTIGEN (01/22/2022 10:45 EDT) Hep B Surface Ag Negative Negative 01/23/2022 8:10 EDT [facility] Blood VENOUS BLOOD / Unknown 01/22/2022 10:45 EDT 01/22/2022 21:28 EDT Provider Outr Resulting Lab CHEMISTRY & BLOOD GAS ORDERABLES [facility] [address] [place] [address] * HEPATITIS C AB W REFLEX TO HCV RNA BY PCR (01/22/2022 10:45 EDT) Hep C Antibody Negative Negative 01/23/2022 8:55 EDT [facility] Blood VENOUS BLOOD / Unknown 01/22/2022 10:45 EDT 01/22/2022 21:28 EDT Provider Outr Resulting Lab CHEMISTRY & BLOOD GAS ORDERABLES Performing Organization Address City/[facility]/ZIP Co de Phone Number [facility] [address] [place] [address] documented in this encounter Visit Diagnoses Not on filedocumented in this encounter Care Teams Microsoft Bi Consultant Relationship Specialty Start Date End Date Unknown, Provider, PCP - General 12/18/18 documented as of this encounter
--- OUTSIDE RECORDS SUMMARY | 2024-02-23 13:26 | XMS_ITS | Encounter Summary ---
Author Organization [facility] [place] [address] Care Team Providers Care Mine Car Repairer Name Role Phone Zenobia Martin MD, Pamela Primary Care Provider Reason for Visit * Reason Comments Other Encounter Details Date Type Department Care Team (Late st Contact Info) Description 09/10/2015 Telephone [place] [address] Amy Ortiz, RN Social History Tobacco Use Types Packs/Day Years Used Date Smoking Tobacco: Passive Smo ke Exposure - Never Smoker Smokeless Tobacco: Never Sex and Gender Information Value Date Recorded Sex Assigned at Not on file Gender Identity Not on file Sexual Orientation Not on file documented as of this encounter Miscellaneous Notes * Telephone Encounter - Amy Ortiz, FILIPE - 09/10/2015 1:47 PM EDT ---- Message ----- From: Beht Chow Sent: 09/06/2015 4:13 PM To: [facility] Nurse Dad returned your call, i explained to him that NB wanted to see him with an Echo since the genetictesting was not done. this is news to me I thought that we came down and did all the testing already I asked him if he wanted to schedule and he stated that he would have to call back because Dionicio is busy with sagar right now. ----- Message from Amy Ortiz RN sent at 09/07/2015 12:39 PM EDT ----- Per Dr Taveras, echocardiogram needed (without office visit). 09-10-15 Spoke with Father [phone]. Reviewed Dr Taveras's recommendation for an echocardiogram. Clarified that an EKG was done at the 03-20-15 office visit. Father stated, 'Dionicio is really busy right now with sports and an upcoming school trip to [place]'. Father agreed to scheduling this Summer.He will call back after getting the date of Dionicio's last day of school. Plan: Will check on appointment status 11/2015 and follow up with Father PRN. As of 11-14-15 no appointments have been scheduled. Phoned home. No answer. Left message to call our office. Will check on status in two weeks and follow up PRN. As of today 12-03-15 no visit has been scheduled. Phoned home. Spoke with Father. Agreed to scheduling echocardiogram. Call transferred to psychiatric secretary. documented in this encounter Plan of Treatment Not on file documented as of this encounter Visit Diagnoses Diagnosis Family history of cardiomyopathy Family history of other cardiovascular diseases documented in this encounter Care Teams Mine Car Repairer Relationship Specialty Start Date End Date Pamela Fregoso MD [address] [place] [address] PCP - General 05/07/10 documented as of this encounter
--- OUTSIDE RECORDS SUMMARY | 2024-02-23 13:26 | XMS_ITS | Encounter Summary ---
Author Organization [facility] [place] [address] Care Team Providers Care Steamfitter Supervisor Name Role Phone Zenobia Martin MD, Pamela Primary Care Provider Encounter Details Date Type Department Care Team (Late st Contact Info) Description 09/06/2015 Telephone [place] [address] Amy Ortiz, RN Social History Tobacco Use Types Packs/Day Years Used Date Smoking Tobacco: Passive Smo ke Exposure - Never Smoker Smokeless Tobacco: Never Sex and Gender Information Value Date Recorded Sex Assigned at Not on file Gender Identity Not on file Sexual Orientation Not on file documented as of this encounter Miscellaneous Notes * Telephone Encounter - Amy Ortiz RN - 09/06/2015 10:32 AM EDT Echocardiogram ordered by Dr Taveras. On 09-06-15 phoned home [phone]. No answer. Left message to call our office. Dr Pamela Fregoso (listed primary care) also informed. Plan: Await callback. Will check on appointment status in one month and follow up PRN. documented in this encounter Plan of Treatment Not on file documented as of this encounter Results * ECHO COMPLETE (01/11/2016 3:05 PM EDT) Anatomical Region Laterality Modality Other 01/11/2016 Narrative 01/11/2016 4:53 PM EDT Procedure: ?Pediatric Echocardiogram Patient: ?MIKA Aparicio ? (Age): 2000(15y) ? Med Rec#: ? [id number] ?Sex: ?M ? Site Loc: ? [facility] ?Ht / Wt: ??175(cm)/91(kg) Pt. Loc: ?Pediatrics ?BSA: ?2.127 ([facility]) Study Date: ?? 01/11/2016 ?Pt. Type: Study Quality: ? Referring: Ayush Taveras B. ([id number]) Referring: MATTHEW Reading: Ayush Taveras B. ([id number]) Market President: Oliverio Valle Diagnosis: *ICD-10-PCS Family history of [...] been electronically signed by: Ayush Taveras MD ? 01/11/2016 16:53:23 Images reviewed and interpretation verified [facility] Cardiac Ultrasound Laboratory Procedure Note Ayush Taveras MD - 01/11/2016 Procedure: Pediatric Echocardiogram Patient: MIKA Aparicio (Age): 2000(15y) Med Rec#: [id number] Sex: M Site Loc: [facility] Ht / Wt: 175(cm)/91(kg) Pt. Loc: Pediatrics BSA: 2.127 ([facility]) Study Date: 01/11/2016 Pt. Type: Study Quality: Referring: Ayush Taveras B. () Referring: MATTHEW Reading: Ayush Taveras B. ([id number]) Market President: Oliverio Valle Diagnosis: *ICD-10-PCS Family history of [...] 01/11/2016 16:53:23 Images reviewed and interpretation verified [facility] Cardiac Ultrasound Laboratory Ayush Taveras MD ECHO ORDERABLES documented in this encounter Visit Diagnoses Diagnosis Family history of cardiomyopathy Family history of other cardiovascular diseases Family history of cardiomyopathy Family history of other cardiovascular diseases documented in this encounter Care Teams Steamfitter Supervisor Relationship Specialty Start Date End Date Pamela [place]reg[place] [address] PCP - General 05/07/10 documented as of this encounter
--- OUTSIDE RECORDS SUMMARY | 2024-02-23 13:26 | XMS_ITS | Encounter Summary ---
[place] [address] Care Team Providers Care Working Foreman Name Role Phone Zenobia Martin MD, Elaine Primary Care Provider Encounter Details Date Type Department Care Team (Late st Contact Info) Description 08/30/2015 Telephone [place] [address] Amy Ortiz, RN Social History [...] Telephone Encounter - Amy Ortiz, FILIPE - 08/30/2015 11:50 AM EDT Seen 03-20-2015. Genetic testing for PGF (Holden Wilkinson) was recommended. Father's (Mauro Wilkinson) last echocardiogram was on 09-15-14 @ [facility]: normal study. The left ventricular sizethickness and function was normal. Estimated ejection fraction was 60-65%. No wall motion abnormalities Plan: Phoned Father [phone]. Line busy x2 Phoned home [phone]. No answer. Left message to call our office. Dr Taveras informed. documented in this encounter Plan of Treatment Not on file documented as of this encounter Visit Diagnoses Diagnosis Family history of cardiomyopathy Family history of other cardiovascular diseases documented in this encounter Care Teams Working Foreman Relationship Specialty Start Date End Date Pamela Fregoso MD [address] [place] [address] PCP - General 05/07/10 documented as of this encounter
--- OUTSIDE RECORDS SUMMARY | 2024-02-23 13:26 | XMS_ITS | Encounter Summary ---
[place] [address] Care Team Providers Care Glass Installer Name Role Phone Zenobia Martin MD, Pamela Primary Care Provider Reason for Visit * Reason Comments Other Encounter Details Date Type Department Care Team (Late st Contact Info) Description 08/31/2015 Telephone [place] [address] Amy Ortiz, RN Social History Tobacco Use Types Packs/Day Years Used Date Smoking Tobacco: Passive Smo ke Exposure - Never Smoker Smokeless Tobacco: Never Sex and Gender Information Value Date Recorded Sex Assigned at Not on file Gender Identity Not on file Sexual Orientation Not on file documented as of this encounter Miscellaneous Notes * Telephone Encounter - Ayush Taveras MD - 09/04/2015 5:38 PM EDT Given that we are unable to obtain a genetic evaluation, Dionicio should have an echocardiogram to assess for inherited hypertrophic cardiomyopathy. * Telephone Encounter - Amy Ortiz RN - 08/31/2015 5:03 PM EDT ----- Message from Carmina Page sent at 08/31/2015 4:49 PM EDT ----- Contact: Dad Dad was returning a phone call asking if Dionicio's grandfather Holden had received genetic testing as recommended by Dr. Taveras. Dad stated that he had not due to cost and stated it was about $2,500 to do the testing. Any further information need please give dad a call. This message routed to Dr Taveras. documented in this encounter Plan of Treatment Not on file documented as of this encounter Visit Diagnoses Diagnosis Family history of cardiomyopathy Family history of other cardiovascular diseases documented in this encounter Care Teams Glass Installer Relationship Specialty Start Date End Date Pamela Fregoso MD [address] [place] [address] PCP - General 05/07/10 documented as of this encounter
--- OUTSIDE RECORDS SUMMARY | 2024-02-23 13:26 | XMS_ITS | Clinical Summary ---
Author Organization [facility] Address [facility] [place] [address] Care Team Providers Care Box Machine Operator Name Role Phone Zenobia Martin MD, Pamela Primary Care Provider [phone] Allergies No known active allergies Medications No known medications Active Problems Patient Care Coordination No te Formatting of this note migh t be different from the original. 01-14-16 FELTON has agreed to genetic testing for HCM. Paperwork faxed to his nursery technician Problem Noted Date Diagnosed Date Family history of cardiomyopathy Overview (01/18/2016): PGF, Holden Wilkinson (: [birth year]1937) diagnosed with mildly obstructive hypertrophic cardiomyopathy in 2000. Echo in 2011: left ventricle asymetric, septal hypertrophy without LV outflow tract obstruction. Estimated LVEF = 75%. Both atria are greatly dilated. RV is normal. 08-31-15 PGF is followed by Dr Esteban Oates @ [phone] in [facility]. Genetic testing not done due to cost per Father. There is a family history of premature deaths from heart disease, but no other family member diagnosed with HCM. The PGF has 4 children. He reports that the 3 male children were screened around the time of his diagnosis. They were all reportedly normal. The daughter has not been screened, although she was treated at [facility] for breast cancer. Father, Mauro Wilkinson (: 07-28-1971) had echo as teen (reported normal) and on 09-15-14 @ [facility]: normal study. The left ventricular sizethickness and function was normal. Estimated ejection fraction was 60-65%. No wall motion abnormalities 01-11-16 CARDIO EVAL (of [facility]): he is at 25% risk of developing HCM. As he gets older, the likelihood of HCM becoming apparent gets less, but will never be zero. Continued surveillance with echocardiography is therefore indicated. Genetic testing of PGF is recommended. No SBE precautions. No activity restrictions. Follow up 12/201701-14-16 Paperwork for genetic testing through the [facility] faxed to Dr Oates (attn: Bassam @ [phone]) for paternal grandfather. Fracture of left forearm Overview (03/15/2015): x2 Fracture of right forearm Overview (03/15/2015): x1 Delayed immunizations FHx: atrial fibrillation Overview (03/16/2015): Paternal grandfather diagnosed with atrial fibrillation in 2002. Reports taking metoprolol and warfarin for 'years' FHx: melanoma Overview (03/16/2015): PGF and his siblings Family History Medical History Relation Comments Arrhythmia Other 1 SVT Early Other 2 age 30-40 yrs Cardiomyopathy Paternal Grandfather : 93 Relation Status Comments Father Alive : 07-28-1971 Mother Alive Other 1 Other 2 Paternal Grandfather Alive : 93 Social History Tobacco Use Types Packs/Day Years Used Date Smoking Tobacco: Passive Smo ke Exposure - Never Smoker Smokeless Tobacco: Never Sex and Gender Information Value Date Recorded Sex Assigned at Not on file Gender Identity Not on file Sexual Orientation Not on file Last Filed Vital Signs Vital Sign Reading Time Taken Comments Blood Pressure 134/72 01/11/2016 3:02 PM EDT Pulse 73 01/11/2016 3:02 PM EDT Temperature 36.7 ??C (98.1 ??F) 03/20/2015 3:04 PM ED T Respiratory Rate 16 01/11/2016 3:02 PM EDT Oxygen Saturation 100% 01/11/2016 3:02 PM EDT Inhaled Oxygen Concentration - - Weight 105.7 kg (233 lb 0.4 oz) 01/11/2016 3:02 PM EDT Height 176.5 cm (5' 9.49) 01/11/2016 3:02 PM ED T Body Mass Index 33.93 01/11/2016 3:02 PM EDT Plan of Treatment Health Maintenance Due Date Last Done Comments HPV vaccine (1 - Male 3-dose series) 2014 HIV screen 2017 Hepatitis C Screening 2017 Hepatitis B vaccine (0-59 yrs) (1) 2018 Tdap adult 2018 Tetanus vaccine 2018 Covid-19 Vaccine (1 - 2022- season) 2024 Influenza (Flu) vaccine (1 o f 1 - Influenza standard series) 02/14/2024 Care Teams Box Machine Operator Relationship Specialty Start Date End Date Pamela Fregoso MD [address] [place] [address] PCP - General 05/07/10
--- OUTSIDE RECORDS SUMMARY | 2024-02-23 13:26 | XMS_ITS | Clinical Summary ---
Author Organization [facility] Address [address] [place] [address] Care Team Providers Care Customer Experience Strategist Name Role Phone Unknown, Provider Primary Care Provider Social History Tobacco Use Types Packs/Day Years Used Date Smoking Tobacco: Never Assessed Sex and Gender Information Value Date Recorded Sex Assigned at Not on file Gender Identity Not on file Sexual Orientation Not on file Plan of Treatment Health Maintenance Due Date Last Done Comments Hepatitis B Vaccine (1 of 3 - 19+ 3-dose series) 06/25 COVID-19 Vaccine ( season) 2023 Hepatitis C Screen Completed 01/22/2022 Procedures Procedure Name Priority Date/Time Associated Diagnosis Comments HEPATITIS C AB W REFLEX TO HCV RNA BY PCR Routine 01/22/2022 10:45 EDT from Last 3 Months or Most Recently Relevant to Health Maintenance Results * HEPATITIS C AB W REFLEX TO HCV RNA BY PCR (01/22/2022 10:45 EDT) Hep C Antibody Negative Negative 01/23/2022 8:55 EDT [facility] Blood VENOUS BLOOD / Unknown 01/22/2022 10:45 EDT 01/22/2022 21:28 EDT Provider Outr Resulting Lab CHEMISTRY & BLOOD GAS ORDERABLES [facility] [address] [place] [address] from Last 3 Months or Most Recently Relevant to Health Maintenance Advance Directives For more information, please contact: [phone] Documents on File Type Date Recorded Patient Chief Librarian Branch Expl anation Advance Directive 09/28/2019 11:53 7-7-19 Appointment Of A Health Care Agent Care Teams Customer Experience Strategist Relationship Specialty Start Date End Date Unknown, Provider, PCP - General 12/18/18
--- OUTSIDE RECORDS SUMMARY | 2024-02-23 13:26 | XMS_ITS | Referral Summary ---
Author Organization [facility] Address [address] [place] [address] Care Team Providers Care Drum Sander Setter Name Role Phone Unknown, Provider Primary Care Provider [phone] Social History Tobacco Use Types Packs/Day Years Used Date Smoking Tobacco: Never Assessed Sex and Gender Information Value Date Recorded Sex Assigned at Not on file Gender Identity Not on file Sexual Orientation Not on file Plan of Treatment Not on file Procedures Procedure Name Priority Date/Time Associated Diagnosis Comments HEPATITIS C AB W REFLEX TO HCV RNA BY PCR Routine 01/22/2022 10:45 EDT from Last 3 Months or Most Recently Relevant to Health Maintenance Results * HEPATITIS C AB W REFLEX TO HCV RNA BY PCR (01/22/2022 10:45 EDT) Hep C Antibody Negative Negative 01/23/2022 8:55 EDT [facility] Blood VENOUS BLOOD / Unknown 01/22/2022 10:45 EDT 01/22/2022 21:28 EDT Provider Outr Resulting Lab CHEMISTRY & BLOOD GAS ORDERABLES [facility] [address] [place] [address] from Last 3 Months or Most Recently Relevant to Health Maintenance Advance Directives For more information, please contact: [phone] Documents on File Type Date Recorded Patient Sanitation Director Expl anation Advance Directive 09/28/2019 11:53 12-19-18 Appointment Of A Health Care Agent Care Teams Drum Sander Setter Relationship Specialty Start Date End Date Unknown, Provider, PCP - General 12/18/18
--- OUTSIDE RECORDS SUMMARY | 2024-02-23 13:26 | XMS_ITS | Encounter Summary ---
Author Organization [facility] Address [facility] [place] [address] Care Team Providers Care Sisal Operator Name Role Phone Zenobia Martin MD, Pamela Primary Care Provider Encounter Details Date Type Department Care Team (Late st Contact Info) Description 03/20/2015 Orders Only [place] [id number] Omar Taveras MD [facility] [address] [place] [address] Family history of cardiomyopathy Social History Tobacco [...] documented as of this encounter Results * EKG 12 Lead (03/20/2015 3:25 PM EDT) Ventricular rate 78 BPM MUSE SYSTEM Atrial Rate 78 BPM MUSE SYSTEM P-R Interval 144 ms MUSE SYSTEM QRS Duration 90 ms MUSE SYSTEM Q-T Interval 366 ms MUSE SYSTEM QTC Calculated (Bezet) 417 ms MUSE SYSTEM Calculated P [place] 24 degrees MUSE SYSTEM Calculated R [place] 31 degrees MUSE SYSTEM Calculated T [place] 52 degrees MUSE SYSTEM INTERPRETATION * Pediatric ECG Analysis * Normal sinus rhythm Normal ECG No previous ECGs available Confirmed by MD DEANNA, OMAR ([id number]) on 03/23/2015 2:02:12 PM MUSE SYSTEM 03/20/2015 3:25 PM EDT 03/23/2015 2:02 PM EDT Omar Taveras MD ECG ORDERABLES [facility] documented in this encounter Visit Diagnoses Diagnosis Family history of cardiomyopathy Family history of other cardiovascular diseases documented in this encounter Care Teams Sisal Operator Relationship Specialty Start Date End Date Pamela Fregoso MD [address] [place] [address] [place] [address] PCP - General 05/07/10 documented as of this encounter
--- OUTSIDE RECORDS SUMMARY | 2024-02-23 13:26 | XMS_ITS | Encounter Summary ---
Author Organization [facility] Address [address] [place] [address] Care Team Providers Care Qc Tech Name Role Phone Unknown, Provider Primary Care Provider [phone] Encounter Details Date Type Department Care Team (Late st Contact Info) Description 12/18/2018 Historical Results Only [facility] - Main [place] [address] [place] [id number] Milo Payton MD [address] [place] [phone] Social History Tobacco Use Types Packs/Day Years Used Date Smoking Tobacco: Never Assessed Sex and Gender Information Value Date Recorded Sex Assigned at Not on file Gender Identity Not on file Sexual Orientation Not on file documented as of this encounter Plan of Treatment Not on file documented as of this encounter Procedures Procedure Name Priority Date/Time Associated Diagnosis Comments ETHYL [place] [facility] Routine 12/18/2018 13:30 EDT COMPLETE BLOOD COUNT WITH DIFFERENTIAL (AUTO) Routine 12/18/2018 13:30 EDT ACETAMINOPHEN Routine 12/18/2018 13:30 EDT SALICYLATE Routine 12/18/2018 13:30 EDT COMPREHENSIVE METABOLIC PANEL (CMP) Routine 12/18/2018 13:30 EDT documented in this encounter Results * SALICYLATE (12/18/2018 13:30 EDT) Salicylate <1.0 12/18/2018 14:[address] [facility] Comment: Date and Time for last dose: UNKNOWN ?? Therapeutic range = < 2.0 mg/dl Possible toxicity = < 20 ??mg/dl Probable toxicity = > 30 ??mg/dl 12/18/2018 13:3 0 EDT 12/18/2018 13:34 EDT Milo Payton MD CHEMISTRY & BLOOD G ORDERABLES Performing Organization Address [facility] Co de Phone Number [facility] * ETHYL ALCOHOL [place] [facility] (12/18/2018 13:30 EDT) ETHYL ALCOHOL [place] [facility] <10.0 <10 mg/dL [facility]/18[facility]2018 [facility] 12/18/2018 13:3 0 EDT 12/18/2018 13:34 EDT Milo Payton MD CHEMISTRY & BLOOD G ORDERABLES Performing Organization Address [facility] de Phone Number [facility] * (ABNORMAL) COMPREHENSIVE METABOLIC PANEL (CMP) (12/18/2018 13:30 EDT) Pathologist [facility] Albumin % 4.5 3.4 - 4.9 g/dL 12/18/2018 13:53 [facility] ALKALINE PHOSPHATASE - [facility] 71 38 - 126 U/L 12/18/2018 13:53 [facility] BILIRUBIN TOTAL 1.6(H) 0.2 - 1.3 mg/dL 12/18/2018 13:53 [facility] BUN - [facility] 7(L) 10 - 26 mg/dL 12/18/2018 13:53 [facility] CALCIUM - [facility] 9.8 8.5 - 10.5 mg/dL 12/18/2018 13:53 [facility] Chloride 107 96 - 110 mmol/L 12/18/2018 13:53 [facility] CO2 Total 24 21 - 32 mEq/L 12/18/2018 13:53 [facility] CREATININE 0.73 0.66 - 1.25 mg/dL 12/18/2018 [facility] eGFR >60 12/18/2018 13:53 [facility] Comment: Chronic renal impairment is defined as GFR <60 Multiply result by 1.210 for patients. Anion Gap 10 0 - 18 12/18/2018 13:53 [facility] GLUCOSE - [facility] 93 70 - 100 mg/dL 12/18/2018 13:53 [facility] Potassium 3.8 3.5 - 5.0 mEq/L 12/18/2018 13:53 [facility] Sodium 141 136 - 145 mEq/L 12/18/2018 13:53 [facility] TOTAL PROTEIN - [facility] 7.6 6.2 - 8.2 gm/dL 12/18/2018 13:53 [facility] SGOT/AST - [facility] 35 17 - 59 U/L 12/18/2018 13:53 [facility] SGPT/ALT - [facility] 29 21 - 72 U/L 12/18/2018 13:53 [facility] 12/18/2018 13:3 0 EDT 12/18/2018 13:34 EDT Milo Payton MD CHEMISTRY & BLOOD G ORDERABLES Performing Organization Address City/[facility] Co de Phone Number [facility] * (ABNORMAL) ACETAMINOPHEN (12/18/2018 13:30 EDT) Acetaminophen <10(L) ug/mL 12/18/2018 14:[address] [facility] Comment: Date and Time for last dose: UNKNOWN Therapeutic range: 10-30 Possible Toxicity: 150-200 Probable toxicity: ??> 200 Critical: >150 @ 4 hrs post ingestion. ?> 50 @ 12 hours post ingestion. 12/18/2018 13:3 0 EDT 12/18/2018 13:34 EDT Milo Payton MD CHEMISTRY & BLOOD G ORDERABLES [facility] * COMPLETE BLOOD COUNT WITH DIFFERENTIAL (AUTO) (12/18/2018 13:30 EDT) ABSOLUTE NEUTROPHIL COUN - [facility] 4.8 2.2 - 8.85 10e3/uL 12/18/2018 13:[address] [facility] BASO # - [facility] 0.03 0.01 - 0.11 10e/uL 12/18/2018 13:[address] [facility] BASO % - [facility] 0 0 - 2 % 12/18/2018 13:[address] [facility] EOS # - [facility] 0.07 0.03 - 0.61 10e3/ul 12/18/2018 13:[address] [facility] EOS % - [facility] 1 0 - 5 % 12/18/2018 13:[address] [facility] GRAN % - [facility] 67.0 40 - 80 % 12/18/2018 13:[address] [facility] HEMATOCRIT - [facility] 41.3 39.5 - 50.2 % 12/18/2018 13:43 [facility] HEMOGLOBIN - [facility] 14.5 13.8 - 17.3 g/dl 12/18/2018 13:43 [facility] IG# - [facility] 0.01 0 - 0.7 e3/uL 12/18/2018 13:[address] [facility] IG% - [facility] 0.1 0 - 0.9 % 12/18/2018 13:[address] [facility] LYMPH # - [facility] 1.6 1.09 - 3.3 e3/ul 12/18/2018 13:43 [facility] LYMPH% - [facility] 21.6 20 - 40 % 12/18/2018 13:43 [facility] MEAN CORPUSCULAR HGB - [facility] 30.0 27.6 - 33.0 pg 12/18/2018 13:43 [facility] MEAN CORPUSCULAR HGB CONC - [facility] 35.1 32.8 - 36.4 g/dL 12/18/2018 13:[address] [facility] MEAN CELL VOLUME - [facility] 85.3 81 - 95 fl 12/18/2018 13:43 [facility] MONO # - [facility] 0.7 0.1 - 0.8 10e3/uL 12/18/2018 13:43 [facility] MONO% - [facility] 9.9 0 - 12 % 12/18/2018 13:43 [facility] PLATELET COUNT 289 141 - 377 10e3/ul 12/18/2018 13:43 [facility] RED BLOOD COUNT - [facility] 4.84 4.36 - 5.78 10e3/ul 12/18/2018 13:43 [facility] RED CELL DISTRI WIDTH - [facility] 12.0 <14.2 % 12/18/2018 13:43 [facility] WHITE BLOOD COUNT - [facility] 7.2 4.0 - 10.4 10e3/ul 12/18/2018 13:43 [facility] 12/18/2018 13:3 0 EDT 12/18/2018 13:[address] Payton MD HEMATOLOGY & PF4 OR DERABLES [facility] documented in this encounter Visit Diagnoses Not on filedocumented in this encounter Care Teams Qc Tech Relationship Specialty Start Date End Date Unknown, Provider, PCP - General 12/18/18 documented as of this encounter
--- OUTSIDE RECORDS SUMMARY | 2024-02-23 13:26 | XMS_ITS | Encounter Summary ---
Author Organization [facility] Address [address] [place] [address] Care Team Providers Care Director Educational Radio Name Role Phone Unknown, Provider Primary Care Provider Encounter Details Date Type Department Care Team (Late st Contact Info) Description 01/22/2022 Lab Requisition [facility] Pathology & Laboratory Medicine - [address] [address] Outr Resulting Lab, Provider Social History Tobacco [...] Procedure Name Priority Date/Time Associated Diagnosis Comments SYPHILIS SEROLOGY Routine 01/22/2022 10: 45 EDT documented in this encounter Results * SYPHILIS SEROLOGY (01/22/2022 10:45 EDT) Syphilis Serology Negative Negative 01/23/2022 10:39 EDT [facility] Blood VENOUS BLOOD / Unknown 01/22/2022 10:45 EDT 01/22/2022 21:28 EDT Provider Outr Resulting Lab IMMUNOLOGY A ND SEROLOGY ORDERABLES [facility] [address] [place] [address] documented in this encounter Visit Diagnoses Not on filedocumented in this encounter Care Teams Director Educational Radio Relationship Specialty Start Date End Date Unknown, ProviderMD PCP - General 12/18/18 documented as of this encounter
--- OUTSIDE RECORDS SUMMARY | 2024-02-23 13:26 | XMS_ITS | Encounter Summary ---
Author Organization [facility] Address [address] [place] [address] Care Team Providers Care Biomedical Instrument Technician Name Role Phone Unknown, Provider Primary Care Provider Encounter Details Date Type Department Care Team (Late st Contact Info) Description 01/22/2022 Lab Requisition [facility] Pathology & Laboratory Medicine - [address] [address] Outr Resulting Lab, Provider Social History Tobacco [...] Procedure Name Priority Date/Time Associated Diagnosis Comments CHLAMYDIA/N. GONORRHOEAE AMPLIFIED NUCLEIC ACID Routine 01/22/2022 10:45 EDT documented in this encounter Results * CHLAMYDIA/N. GONORRHOEAE AMPLIFIED RNA (01/22/2022 10:45 EDT) Neisseria gonorrhoeae Result Negative Negative 01/23/2022 15:06 EDT [facility] Chlamydia trachomatis Result Negative Negative 01/23/2022 15:06 EDT [facility] Urine URINE / Unknown 01/22/2022 1 0:45 EDT 01/22/2022 23:01 EDT Provider Outr Resulting Lab MICROBIOLOGY - GENERAL ORDERABLES [facility] [address] [place] [address] documented in this encounter Visit Diagnoses Not on filedocumented in this encounter Care Teams Biomedical Instrument Technician Relationship Specialty Start Date End Date Unknown, Provider, PCP - General 12/18/18 documented as of this encounter
--- OUTSIDE RECORDS SUMMARY | 2024-02-23 13:26 | XMS_ITS | Encounter Summary ---
Author Organization [facility] Address [facility] [place] [address] Care Team Providers Care Concrete Plant Laborer Name Role Phone Zenobia Martin MD, Pamela Primary Care Provider [phone] Reason for Visit * Reason Comments Other CM Encounter Details Date Type Department Care Team (Late st Contact Info) Description 03/20/2015 3:30 PM EDT Office Visit Pediatric Cardiology at [facility] [place] [id number] Ayush Huerta MD [facility] [place] [address] Family history of cardiomyopathy; FHx: atrial fibrillation Social History Tobacco Use Types Packs/Day Years Used Date Smoking Tobacco: Passive Smo ke Exposure - Never Smoker Smokeless Tobacco: Never Sex and Gender Information Value Date Recorded Sex Assigned at Not on file Gender Identity Not on file Sexual Orientation Not on file documented as of this encounter Last Filed Vital Signs Vital Sign Reading Time Taken Comments Blood Pressure 136/57 03/20/2015 3:14 PM EDT Lef t Leg Pulse 84 03/20/2015 3:04 PM EDT Temperature 36.7 ??C (98.1 ??F) 03/20/2015 3:04 PM ED T Respiratory Rate 20 03/20/2015 3:04 PM EDT Oxygen Saturation 100% 03/20/2015 3:04 PM EDT Inhaled Oxygen Concentration - - Weight 90.6 kg (199 lb 11.8 oz) 03/20/2015 3:04 PM EDT Height 175 cm (5' 8.9) 03/20/2015 3:04 PM EDT Body Mass Index 29.58 03/20/2015 3:04 PM EDT Body Mass Index Percentile 96.39% 03/20/2015 3:0 4 PM EDT Growth Chart: CDC (Boys, 2-2 0 Years) documented in this encounter Progress Notes * Ayush Huerta MD - 03/20/2015 4:22 PM EDT Images from the original note were not included. Patient: Primary Care Provider: Requesting Provider: Dionicio Wilkinson [address] [facility] [address] PAMELA FREGOSO MD (General) [address] [place] [address] [place] [address] No referring provider defined for this encounter. (home) Phone: N/A Fax: : 2000 Age/Gender: 14 y.o. male Dionicio Wilkinson was seen in the Pediatric Cardiology Clinic at [facility] on 03/20/2015 at the request of PAMELA FREGOSO MD (General) for evaluation of a family history of hypertrophic cardiomyopathy. Records were obtained and personally reviewed before the visit, and my summary is below. Patient Active Problem List Diagnosis ??? FHx: [...] Both atria are greatly dilated. RV is normal Father recalls being screened (unsure what tests) negative as a teen ??? Fracture of left forearm x2 ??? Fracture of right forearm x1 ??? Delayed immunizations History: Dionicio has been a healthy child with no symptoms referable to the cardiovascular system. Dionicio has had no complaints of chest pain, dyspnea, fatigue, palpitations and syncope. He has a normal exercise tolerance with no difficulty keeping up with his peers. Past Medical History: None significant ROS: Negative for constitutional, respiratory, gastrointestinal, neurologic, endocrine, hematologic, immunologic, urinary, dermatologic, or musculoskeletal symptoms. Family Hx: The family history is remarkable as noted in the Problem List. The paternal grandfather was diagnosed around 25 years ago based on a murmur. He reports having hada murmur all his life. He had not had cardiac symptoms then and has remained relatively free of symptoms or problems related to HCM. There is a family history of premature deaths from heart disease, but no other family member diagnosed with HCM. The PGF has 3 male children who were screened around the time of his diagnosis; all were reportedlynormal. Neither has been diagnosed with HCM. There is also a daughter who has not been screened, although she was recently treated at [facility] for breast cancer. Dionicio's father had evaluation for a possible DC about one year ago at [facility]. Those records are not currently available. Social Hx: Dionicio is here today with his grandparents. Dionicio plays soccer and lacrosse. Medications: No current outpatient prescriptions on file. No current facility-administered medications for this visit. Physical Exam: Filed Vitals: 03/20/15 1504 03/20/15 1509 03/20/15 1511 03/20/15 1514 BP: 135/68 134/66 134/54 136/57 Pulse: 84 Temp: 36.7 ??C (98.1 ??F) Resp: 20 Height: 175 cm (5' 8.9) Weight: 90.6 kg (199 lb 11.8 oz) SpO2: 100% 98%ile based on [facility] 2-20 Years [id number] data using vitals from 03/20/2015. 62%ile based on CDC2-20 Years [id number] data using vitals from 03/20/2015. Body mass index is 29.58 kg/(m^2). Dionicio is a very pleasant, mildly overweight, acyanotic young man in no distress. HEENT: No dysmorphic facial features, the mucosa is pink and moist, sclera are not injected, gaze is conjugate CV: Regular rate and rhythm. Normal precordial activity. Normal brachial and femoral pulses. Normalfirst and second heart sounds with normal splitting of the second heart sound. No murmur noted in systole or diastole in the supine, sitting or standing position. No click, gallop or rub. Resp: lungs are clear to auscultation with equal breath sounds bilaterally. Abd: soft and the liver is not enlarged. MSK: no clubbing or cyanosis, moves all extremities normally Neuro: non-focal with normal tone. Skin: acyanotic, without peripheral edema. ECG: An electrocardiogram obtained today was reviewed and is normal. Assessment: Dionicio appears normal from the cardiovascular standpoint with no evidence for heart disease. The electrocardiogram today is normal and is reassuring. We discussed the genetics of HCM and the grandparents express a good understanding. A gene test is available for HCM and will identify a mutation in about 60-70% of affected individuals. If the grandfather tests positive, Dionicio and other family members, starting with his father's generation, can then be tested for the same mutation. A negative test would then rule out HCM, an no ongoing screening would be needed. A positive gene test in Dionicio would require ongoing screening for development ofsigns of HCM. If the grandfather had a negative test, there is no value in gene testing for other family members. At this time, with a normal exam and ECG I have deferred echocardiographic screening in favor of the gene testing approach. If the grandfather has a negative gene test, an echocardiogram remains a reasonable approach for Dionicio. We discussed this issue at length and the grandparents will work on getting the gene testing done. We will also try to obtain records from Dionicio's fathers recent cardiac evaluation. Recommendations: I have recommended no further evaluation at this time. There is no indication for any limitations or restrictions in Dionicio's activity. SBE precautions are not indicated. Follow-up: Pending gene testing documented in this encounter Plan of Treatment Not on file documented as of this encounter Procedures Procedure Name Priority Date/Time Associated Diagnosis Comments EKG 12-LEAD Routine 03/20/2015 3:25 PM EDT Family history of cardiomyopathy documented in this encounter Results * EKG 12 Lead (03/20/2015 3:25 PM EDT) Ventricular rate 78 BPM MUSE SYSTEM Atrial Rate 78 BPM MUSE SYSTEM P-R Interval 144 ms MUSE SYSTEM QRS Duration 90 ms MUSE SYSTEM Q-T Interval 366 ms MUSE SYSTEM QTC Calculated (Bezet) 417 ms MUSE SYSTEM Calculated P Bul[place] 24 degrees MUSE SYSTEM Calculated R [place] 31 degrees MUSE SYSTEM Calculated T [place] 52 degrees MUSE SYSTEM INTERPRETATION * Pediatric ECG Analysis * Normal sinus rhythm Normal ECG No previous ECGs available Confirmed by MD HUERTA NORMAN ([id number]) on 03/23/2015 2:02:12 PM MUSE SYSTEM 03/20/2015 3:25 PM EDT 03/23/2015 2:02 PM EDT Ayush Huerta MD ECG ORDERABLES MUSE SYSTEM documented in this encounter Visit Diagnoses Diagnosis Family history of cardiomyopathy Family history of other cardiovascular diseases FHx: atrial fibrillation Family history of other cardiovascular diseases documented in this encounter Care Teams Concrete Plant Laborer Relationship Specialty Start Date End Date Pamela Fregoso MD [address] [place] [address] [place] [address] PCP - General 05/07/10 documented as of this encounter
[2024-02-23 13:31] VITALS: BP 158/85; PULSE 109; RESP 22; O2SAT 97
[2024-02-23 15:10] VITALS: BP 163/112; PULSE 111; RESP 20; TEMP 36.9; O2SAT 97
== END 2024-02-23 15:12 | disposition home or self-care (01) ==
PROVIDERS: Emergency Provider Emergency Medicine; PCP Nurse Practitioner Family
DX: F10.120 Alcohol abuse with intoxication, uncomplicated (principal); F17.210 Nicotine dependence, cigarettes, uncomplicated; Y90.8 Blood alcohol level of 240 mg/100 ml or more
CPT/HCPCS: 80307; 99283; 80320; 80329; 81003; 84443; 85025

== ENCOUNTER 2024-02-23 18:34 | Inpatient (IN) | payer MEDICAID, SELFPAY ==
[2024-02-23] VITALS (44 sets, daily range): BP systolic 137–181; BP diastolic 63–111; PULSE 67–140; RESP 13–34; TEMP 36–37.4; O2SAT 93–100
--- NOTE | 2024-02-23 19:00 | RT.EKG_ITS ---
APPROVED REPORT Exam: Resting ECG Reason for Exam: etoh withdrawal Patient Location: E HR:128 bpm ECG Measurements Heart Rate 128 AXIS HI 156 P 58 QRSd 86 QRS 34 QT 290 T 51 QTc 424 Conclusion Sinus tachycardia, rate 128 No interval abnormality, ectopy No STEMI
[2024-02-23] MEDS: Normal Saline 500 ML 1000 ML IV (19:54)
--- NOTE | 2024-02-23 20:10 | NUR.NOTE ---
Pt presented to the ED with his substance abuse counselor. Reported he typically drinks 150 ML of 40 proof liquer and up to 8 40 Oz 8% drinks every day. Pt has reduced alcohol intake over the past day, wants to get sober. Pt last drink was at 11:00 AM this morning. On presentation, extreme DT's initial CIWA 30. Pt reports suicidal ideations as well, has hx of self harm, hx of near-attempts. Pt has family hx of suicide on both sides of family. Pt reports he came way, way too close to committing suicide today. Reports he was compelled to grab the knife in his room and kill himself, reported he experienced visual hallucination of him actually carrying out the act. This scared him to contact his counselor for help, who was with him when he presented to the ED. Pt not placed in safety room due to need for medical management of alcohol withdrawal symptoms. Received initial loading dose of 290 mg phenobarbital in ED. 1:1 sitter with pt, reduced stimulation in room by turning the light off and lowering alarm volumes. Father also visited shortly. Pt education on withdrawal and safety provided. Nishant Law, DUSTINN, RN Nursing Note:
[2024-02-23 20:35] LABS: ALT 90 U/L (16-63); AST 57 U/L (15-37); Albumin 4.2 g/dL (3.4-5.0); Alkaline Phosphatase 75 U/L (46-116); Anion Gap 9.8 mmol/L (3-11); BUN 13 mg/dL (7-18); Bilirubin, Total 0.88 mg/dL (0.2-1.0); CO2 29.2 mmol/L (21.0-32.0); Calcium 8.8 mg/dL (8.5-10.1); Chloride 101 mmol/L (98-107); Estimated GFR 107.78 (mL/min/1.73m2); Glucose 93 mg/dL (74-106); Magnesium 1.7 mg/dL (1.8-2.4); Potassium 4.1 mmol/L (3.5-5.1); Sodium 140 mmol/L (136-145); Total Protein 7.7 g/dL (6.4-8.2)
[2024-02-23] MEDS: Ketorolac 15 MG/ML VIAL 7.5 MG IVP (21:11)
--- NOTE | 2024-02-23 21:20 | W.PM.HP.N ---
Date of service: 02/23/24 Time of Service: 21:20 Assessment and Plan Assessment and plan (1) Alcohol withdrawal: Start date: 02/23/24 Status: Acute Assessment and plan: This is a 23-year-old gentleman who is a chronic alcoholic going through active alcohol withdrawal wanting to stop alcohol because of disruptive social aspects of his life as well as his work and wellbeing. He has stopped alcohol for a year and a half in the past that does not help with support systems. He has only attended AA meetings by remote access. He is interested in inpatient alcohol treatment and outpatient support at this time. He is going through active alcohol withdrawal and is on phenobarbital protocol doing well. He will be given supplements as needed and advance diet. Once medically cleared can DC mental health for his suicidal ideation and options for outpatient or inpatient alcohol and/or psychiatric treatment with his suicidal ideation. Because of the large volume of alcohol consumed daily the patient will be in the ICU admission needs criteria for possible severe alcohol withdrawal. He also needs a sitter because of suicidal ideation. He is a full code. Qualifiers: Complication of substance-induced condition: with unspecified complication Qualified Code(s): F10.939 - Alcohol use, unspecified with withdrawal, unspecified (2) Depression with suicidal ideation: Status: Chronic Assessment and plan: Patient is to be reevaluated for treatment of depression along and may require inpatient psychiatric care once medically cleared. He is a history of an inpatient alcohol treatment suicide precautions with sitter. (3) Hypomagnesemia: Start date: 02/23/24 Status: Acute Assessment and plan: Replete and follow-up lab with supplementation as needed. Advance to regular diet. (4) Chronic alcoholism: Status: Chronic Assessment and plan: Patient has been drinking most of his teenage and adult life now wishing to stop. He has a strong family history of alcoholism on both sides. He also has a strong family history of depression and self treatment. He does smoke tobacco and will be placed on nicotine supplement while hospitalized. He also has a history of asthma with his smoking and be given nebulizers as needed. He does not appear to have complications of his alcoholism with no aspiration and no increased respiratory symptoms. He does have blackouts with chronic alcohol use. (5) Asthma: Status: Chronic Assessment and plan: Rescue inhaler therapy with nebulizers while hospitalized. Qualifiers: Asthma severity: mild Asthma persistence: intermittent Asthma complication type: uncomplicated Qualified Code(s): J45.20 - Mild intermittent asthma, uncomplicated (6) Tobacco abuse: Status: Chronic Assessment and plan: NicoDerm 21 mg patch every 24 hours. Advised long-term cessation. History of Present Illness History of Present Illness Chief Complaint: Chronic alcoholism with alcohol withdrawal, suicidal/homicidal ideation Narrative: This is a 23-year-old male patient who has returned to the ED at the advice of his counselor because of suicidal ideation and alcohol intoxication wishing to stop drinking alcohol. He was seen earlier the day of admission and given Librium to attempt self weaning of alcohol which is done in the past. He has been drinking more heavily the last 6 weeks with up to a gallon of vodka daily and has had some blackouts with some upsetting behavior and increased suicidal ideation. He recently did visit an ex-girlfriend's new boyfriend's apartment with a gun by his report with only partial memory of the event. He also recently has lost his job because of drinking alcohol. He is presently not homicidal but states that if he goes home he will kill himself. Patient had his last drink the morning of admission and his suicidal ideation is more active though is still there is no specific plan though he does: Done with ambulation. He is having sweats and some tremors but no hallucinations presently but does have a racing heart. He is actually going through alcohol withdrawal. He was initiated on phenobarbital protocol and is sleeping off and on when approached in the ICU. He is a full code. Review of Systems Narrative: 13 point review of systems otherwise unrevealing or stable. Patient has been sober for a year and a half at 1 time but did not have support systems for continued abstinence from alcohol. He does smoke daily and does want nicotine supplement. PFSH All Active Problems (Updated 02/24/24 @ 09:23 by Holden Haynes) Tobacco abuse (Chronic) Asthma (Chronic) Alcohol withdrawal (Acute) Depression with suicidal ideation (Chronic) Hypomagnesemia (Acute) Chronic alcoholism (Chronic) Chronic alcoholism with psychosis (Acute) Alcohol abuse (Chronic) Substance use disorder (Chronic) Chronic marijuana use. + CRAFFT for alcohol use Anxiety (Acute) Medical History (Updated 02/24/24 @ 09:23 by Holden Haynes) Closed right arm fracture Closed left arm fracture X2 Varicella AGE 4 Family History Mother No problems noted. Father Essential hypertension Hyperlipidemia Other ALS (amyotrophic lateral sclerosis) paternal Alcohol abuse paternal, maternal Essential hypertension paternal Personal history of malignant neoplasm PGF-skin Heart disease fozbnhli-tffuqmeopcynus-FUXS - goes thru the male line paternal cousin with SVT Hyperlipidemia PGM Mental disorder pat uncle- anxiety, pat great uncle commited suicide Myocardial infarction PGF, maternal side Stroke PGGF Cardiomyopathy PGF-ZEUS, all of his siblings as well Asthma brother-outgrown, paternal side Social History Smoking/Tobacco Use Status: Current every day Tobacco Type: cigarettes Smoking risk assessment performed?: Yes Alcohol Intake: current Alcohol Intake frequency: 3 or more drinks per day Alcohol type: beer and hard liquor Drug use: Occasionally Substance use type: marijuana Details: a little last night Housing: house Do you feel safe at home: Yes Do you feel safe in your relationship?: Yes Meds Allergies and Home Medications Allergies Allergy/AdvReac Type Severity Reaction Status Date / Time No Known Allergies Allergy Verified 02/23/24 19:56 Home Medications ?Medication ?Instructions ?Recorded ?Confirmed ?Type albuterol sulfate 90 mcg/actuation 2 inh inhalation Q6H PRN 09/10/23 02/23/24 History aerosol inhaler (Ventolin HFA) citalopram 20 mg tablet 20 mg PO DAILY 09/10/23 02/23/24 History chlordiazepoxide HCl 25 mg capsule See Rx Instructions .Route 02/23/24 02/23/24 Rx .COMPLEX PRN #15 caps Exam Narrative Exam Narrative: General: Patient is easily awakened and has a slow monotonous tone to voice with fair eye contact. He is slightly anxious. He is alert and oriented x 3. Moderate distress from his sweats and shakes. HEENT: Normocephalic, eyes pupils equal and react to light symmetrically, extraocular movement intact and sclera anicteric. Oropharynx with moist mucosa and fair dentition. Neck: Supple without JVD. Back: Normal posture without CVA tenderness. Lungs: Fair aeration clear to auscultation percussion with no focalizing rales or rhonchi. No expiratory wheeze. Heart: Tachycardic without murmurs or gallops appreciated. Abdomen: Scaphoid contour, soft nontender to palpation no palpable hepatosplenomegaly. Bowel sounds positive all quadrants. Genitalia/rectal: Exam deferred. Extremities: Without clubbing, cyanosis or pitting edema. Peripheral pulses intact. Skin: Normal color, warm and moist. Neuro: Cranial nerves II through XII gross intact, no focalizing motor deficits. Continues slight tremor especially withintention. No asterixis. DTR slightly hypoactive and symmetrical. Psych: Flattened affect with depressed mood. No abnormal thought processes or hallucinations. Remote and recent memory intact. Results Imaging Imaging Studies: No imaging was performed, alcohol level was over 200 and with repeat below 40, urine drug screen was negative and only positive for medications given in the ED with repeat. Labs 02/24/24 04:35 02/24/24 04:35 Labs: Laboratory Results - last 24 hr 02/23/24 19:54 Sodium 140 Potassium 4.1 Chloride 101 Carbon Dioxide 29.2 Anion Gap 9.8 BUN 13 Creatinine 1.0 Est GFR (CKD-EPI 2020) 107.78 Glucose 93 Calcium 8.8 Magnesium 1.7 L Total Bilirubin 0.88 AST 57 H ALT 90 H Alkaline Phosphatase 75 Total Protein 7.7 Albumin 4.2 TSH 0.90 Last Vital Signs Temp 37.4 C 02/23/24 18:38 Pulse 99 H 02/23/24 20:46 Resp 17 02/23/24 20:46 BP 161/81 H 02/23/24 20:46 Pulse Ox 95 02/23/24 20:46 Time Spent Time spent with Patient: >75 minutes Time was spent: preparing to see the patient(eg.review tests), obtaining and/or reviewing separately otained hiistory, ordering medications,tests, procedures, indepentently interpreting results, counseling the patient and care coordination
[2024-02-23 21:27] LABS: Bilirubin Negative (Negative); Blood Negative (Negative); Clarity Clear (Clear); Glucose Negative (Negative); Ketones Negative (Negative); Leukocyte Esterase Negative (Negative); Nitrite Negative (Negative); Specific Gravity 1.015 (1.005-1.025); Urobilinogen 0.2 mg/dL (Up to 0.2); pH 8.5 (5-8)
[2024-02-23] MEDS: MAGNESIUM SULFATE 8.12 MEQ, MULTIVITAMIN 10 ML, THIAMINE 100 MG, FOLIC ACID 1 MG in Nor... 168.867 MG IV (21:34)
[2024-02-23 21:42] LABS: ETHANOL BLOOD 36.5 mg/dL (<10)
[2024-02-23 21:42] LABS: *AMPHETAMINES SCREEN URINE Negative (Negative); *BARBITURATES SCREEN URINE Positive (Negative); *BENZODIAZEPINES SCREEN URINE Positive (Negative); Cannabinoids THC Positive (Negative); Cocaine Screen,Urine Negative (Negative); METHADONE URINE SCREEN Negative (Negative); OPIATES URINE SCREEN Negative (Negative)
[2024-02-23 21:43] LABS: Tricyclic Antidepressants Negative (Negative)
--- NOTE | 2024-02-23 22:20 | W.PC.ACHO ---
Registration Status: Primary Language: Preferred Language: ED Information & Data Chief Complaint PsychEval 02/23/24 22:16 Chief Complaint PsychEval 02/23/24 18:38 Other Complaint ETOHWithdr 02/23/24 18:38 Triage Note SI/HI today. Thought about 02/23/24 18:38 cutting himself after being discharged today and requested he be transported back here for assessment and treatment. Wants to stay for help. Medical / Surgical History (Last Reviewed 02/23/24 @ 21:22 by Holden Haynes) Closed right arm fracture Closed left arm fracture Varicella Most Recent Vital Signs Temperature 37.4 C 02/23/24 18:38 Temperature Source Tympanic 02/23/24 18:38 Pulse 76 02/23/24 22:01 Pulse 105 H 02/23/24 22:01 Respiratory Rate 26 H 02/23/24 22:01 Respiratory Effort Normal 02/23/24 22:16 Respiratory Pattern Normal 02/23/24 19:24 Blood Pressure 138/63 02/23/24 22:01 Blood Pressure Mean 88 02/23/24 22:01 Pulse Oximetry 98 02/23/24 22:01 Oxygen Delivery Method Room Air 02/23/24 18:38 Oxygen Flow Rate 0 02/23/24 18:38 Pain Level 4 02/23/24 21:11 Allergies No Known Allergies Allergy (Verified 02/23/24 19:56) Active Medications Generic Name Dose Route Start Last Admin Trade Name Freq PRN Reason Stop Dose Admin Magnesium Sulfate 8.12 meq/ 1,013.2 mls @ 168.867 mls/hr 02/23/24 20:50 02/23/24 21:34 Multivitamins 10 ml/ Thiamine IV 02/24/24 02:49 168.867 mls/hr HCl 100 mg/ Folic Acid 1 mg/ INFUSION ONE Administration Sodium Chloride IV IV Catheter Type [Left Forearm Peripheral IV ] IV Catheter Type [Right Wrist] Peripheral IV IV Catheter Gauge [Left 18 Forearm] IV Catheter Gauge [Right Wrist 18 ] Diagnostics 02/23/24 02/23/24 Range/Units 21:05 19:54 Sodium 140 (136-145) mmol/L Potassium 4.1 (3.5-5.1) mmol/L Chloride 101 (98-107) mmol/L Carbon Dioxide 29.2 (21.0-32.0) mmol/L Anion Gap 9.8 (3-11) mmol/L BUN 13 (7-18) mg/dL Creatinine 1.0 (0.70-1.30) mg/dL Est GFR (CKD-EPI 2020) 107.78 (mL/min/1.73m2) Glucose 93 (74-106) mg/dL Calcium 8.8 (8.5-10.1) mg/dL Magnesium 1.7 L (1.8-2.4) mg/dL Total Bilirubin 0.88 (0.2-1.0) mg/dL AST 57 H (15-37) U/L ALT 90 H (16-63) U/L Alkaline Phosphatase 75 (46-116) U/L Total Protein 7.7 (6.4-8.2) g/dL Albumin 4.2 (3.4-5.0) g/dL TSH 0.90 (0.36-3.74) uIU/mL Urine Color Yellow (Yellow) Urine Clarity Clear (Clear) Urine pH 8.5 H (5-8) Ur Specific [place] 1.015 (1.005-1.025) Urine Protein Trace (Neg-Trace) mg/dL Urine Ketones Negative (Negative) mg/dL Urine Blood Negative (Negative) Urine Nitrite Negative (Negative) Urine Bilirubin Negative (Negative) Urine Urobilinogen 0.2 (Up to 0.2) mg/dL Ur Leukocyte Esterase Negative (Negative) Urine Glucose Negative (Negative) mg/dL Urine Opiates Screen Negative (Negative) Urine Methadone Screen Negative (Negative) Ur Barbiturates Screen Positive A (Negative) Ur Tricyclics Screen Negative (Negative) Ur Amphetamines Screen Negative (Negative) U Benzodiazepines Scrn Positive A (Negative) Urine Cocaine Screen Negative (Negative) Ur THC Screen Positive A (Negative) Ethyl Alcohol 36.5 H (<10) mg/dL Intake and Output - 24 Hour Total 02/23/24 18:34 thru 02/23/24 21:39 Intake Total 603.1271 Balance 603.9262 Weight 86.183 kg Intake: IV 603.6721 Falls Risk Assessment History of Falls No History 02/23/24 20:00 Contributing Factors Unstable,Impairments, 02/23/24 20:00 Medications Ambulatory Aids Independent 02/23/24 20:00 Tubes/Lines With any additional score 02/23/24 20:00 Gait Evaluation W/any additional score 02/23/24 20:00 Fall Total Score 49 02/23/24 20:00 Level of Risk Moderate Risk 02/23/24 20:00 Problems (Last Reviewed 02/23/24 @ 21:22 by Holden Haynes) Alcohol withdrawal (Acute) Depression with suicidal ideation (Chronic) Hypomagnesemia (Acute) Chronic alcoholism (Chronic) Notes 02/23/24 20:10 Nursing Notes by Nishant Law Pt presented to the ED with his substance abuse counselor. Reported he typically drinks 150 ML of 40 proof liquer and up to 8 40 Oz 8% drinks every day. Pt has reduced alcohol intake over the past day, wants to get sober. Pt last drink was at 11:00 AM this morning. On presentation, extreme DT's initial CIWA 30. Pt reports suicidal ideations as well, has hx of self harm, hx of near-attempts. Pt has family hx of suicide on both sides of family. Pt reports he came way, way too close to committing suicide today. Reports he was compelled to grab the knife in his room and kill himself, reported he experienced visual hallucination of him actually carrying out the act. This scared him to contact his counselor for help, who was with him when he presented to the ED. Pt not placed in safety room due to need for medical management of alcohol withdrawal symptoms. Received initial loading dose of 290 mg phenobarbital in ED. 1:1 sitter with pt, reduced stimulation in room by turning the light off and lowering alarm volumes. Father also visited shortly. Pt education on withdrawal and safety provided. INOCENCIA Davis, RN Nursing Note: Initialized on 02/23/24 20:10 - END OF NOTE v v v v v v v v v Sending and/or Receiving Nurses: Please use comment section below to note any information pertinent to the patient hand-off not included above. Information / Comments: Report received from: Evan
--- NOTE | 2024-02-23 22:21 | ED.GENADUL_ITS ---
Discharge Plan Disposition Patient Disposition: Admit to [facility] Condition: Serious Discharge Details Clinical Impression: Alcohol withdrawal, Hypomagnesemia, Anxiety, Depression with suicidal ideation, Alcohol abuse Primary Care Provider: XIOMARA MURRY ED Provider: Karla Ibanez Home Meds and New Rx's Prescriptions: No Action citalopram 20 mg tablet 20 mg PO DAILY Patient Comments: TAKE ONE TABLET BY MOUTH EVERY DAY albuterol sulfate [Ventolin HFA] 90 mcg/actuation HFA aerosol inhaler 2 inh INHALATION Q6H PRN Patient Comments: INHALE ONE TO TWO PUFFS BY MOUTH EVERY 4 TO 6 HOURS NEEDED chlordiazepoxide HCl 25 mg capsule See Rx Instructions .ROUTE .COMPLEX PRNQty: 15 0RF Rx Instructions: take 50mg every 6 hours for 1 day, then 25mg every 6 hours on day 2, then 25mg every 12 hours on day 3 and then 25mg at night on day 4 HPI General Date/Time Provider Initiated Documentation: 02/23/24 18:36 . HPI Narrative: This 23-year-old male past medical history of alcoholism and depression and anxiety presents with report of binge drinking over the course of the last 6 weeks. He states he has been drinking between 1 pint and 1 gallon of vodka daily. He states that his last drink was this morning. He is sick of drinking alcohol and wants to stop. He is endorsing suicidality but denies a specific plan at this time. He has engaged in self-harm in the past but denies any attempts to harm self today. He does report taking a dose of the Librium which she was supplied at an earlier visit this morning. He returns at the request of his counselor out of concern for safety at home. Patient tells me that if he is discharged today that he will take his life. Patient feels anxious, tremulous, depressed, nauseous, agitated and is having intermittent hallucinations. Denies history of seizures in the past. Alcohol withdrawal. Denies any additional illicit drug use aside from marijuana per patient. Related Data Home Medications ?Medication ?Instructions ?Recorded ?Confirmed albuterol sulfate 90 mcg/actuation 2 inh inhalation Q6H PRN 09/10/23 02/23/24 aerosol inhaler (Ventolin HFA) citalopram 20 mg tablet 20 mg PO DAILY 09/10/23 02/23/24 chlordiazepoxide HCl 25 mg capsule See Rx Instructions .Route 02/23/24 02/23/24 .COMPLEX PRN #15 caps Previous Rx's ?Medication ?Instructions ?Recorded chlordiazepoxide HCl 25 mg capsule See Rx Instructions .Route 02/23/24 .COMPLEX PRN #15 caps Allergies Allergy/AdvReac Type Severity Reaction Status Date / Time No Known Allergies Allergy Verified 02/23/24 19:56 General Stated Complaint: PsychEval CHI: 2 Exam Narrative Exam Narrative: Alert and oriented 23-year-old male, tremulous, tongue fasciculations, oropharynx patent, uvula midline, no visible evidence of acute trauma, specifically no evidence of head injury, pupils equal round reactive to light and accommodation lungs clear to auscultation, sinus tachycardia, no abdominal tenderness alert and oriented x 4, tremor noted at rest, very anxious and agitated on assessment does not endorse current homicidality, suicidality positive, Course Vital Signs Vital signs: Vital Signs Temperature 37.4 C 02/23/24 18:38 Pulse 140 H 02/23/24 18:38 Respiratory Rate 15 02/23/24 18:38 Blood Pressure 153/111 H 02/23/24 18:38 Pulse Oximetry 95 02/23/24 18:38 Temperature 37.4 C 02/23/24 18:38 Temperature Source Tympanic 02/23/24 18:38 Pulse 76 02/23/24 22:01 Pulse 105 H 02/23/24 22:01 Respiratory Rate 26 H 02/23/24 22:01 Respiratory Effort Normal 02/23/24 22:16 Respiratory Pattern Normal 02/23/24 19:24 Blood Pressure 138/63 02/23/24 22:01 Blood Pressure Mean 88 02/23/24 22:01 Pulse Oximetry 98 02/23/24 22:01 Oxygen Delivery Method Room Air 02/23/24 18:38 Oxygen Flow Rate 0 02/23/24 18:38 Pain Level 4 02/23/24 21:11 Lab/Test Results Lab/Test Results: Laboratory Tests Range/Units 02/23/24 02/23/24 19:54 21:05 Sodium (136-145) mmol/L 140 Potassium (3.5-5.1) mmol/L 4.1 Chloride (98-107) mmol/L 101 Carbon Dioxide (21.0-32.0) mmol/L 29.2 Anion Gap (3-11) mmol/L 9.8 BUN (7-18) mg/dL 13 Creatinine (0.70-1.30) mg/dL 1.0 Est GFR (CKD-EPI 2020) (mL/min/1.73m2) 107.78 Glucose (74-106) mg/dL 93 Calcium (8.5-10.1) mg/dL 8.8 Magnesium (1.8-2.4) mg/dL 1.7 L Total Bilirubin (0.2-1.0) mg/dL 0.88 AST (15-37) U/L 57 H ALT (16-63) U/L 90 H Alkaline Phosphatase (46-116) U/L 75 Total Protein (6.4-8.2) g/dL 7.7 Albumin (3.4-5.0) g/dL 4.2 TSH (0.36-3.74) uIU/mL 0.90 Urine Color (Yellow) Yellow Urine Clarity (Clear) Clear Urine pH (5-8) 8.5 H Ur Specific [place] (1.005-1.025) 1.015 Urine Protein (Neg-Trace) mg/dL Trace Urine Ketones (Negative) mg/dL Negative Urine Blood (Negative) Negative Urine Nitrite (Negative) Negative Urine Bilirubin (Negative) Negative Urine Urobilinogen (Up to 0.2) mg/dL 0.2 Ur Leukocyte Esterase (Negative) Negative Urine Glucose (Negative) mg/dL Negative Urine Opiates Screen (Negative) Negative Urine Methadone Screen (Negative) Negative Ur Barbiturates Screen (Negative) Positive A Ur Tricyclics Screen (Negative) Negative Ur Amphetamines Screen (Negative) Negative U Benzodiazepines Scrn (Negative) Positive A Urine Cocaine Screen (Negative) Negative Ur THC Screen (Negative) Positive A Ethyl Alcohol (<10) mg/dL 36.5 H Medical Decision Making 23-year-old male presenting with acute alcohol withdrawal and suicidality discharged earlier today from this facility on Librium. Patient presents in acute alcohol withdrawal with a CIWA of 27. He was given a full loading dose of phenobarb at 10 mg/kg and a repeat dose of 160 mg of phenobarbital and is now resting comfortably in the room, blood pressure and tachycardia have improved. Patient is also received a liter of normal saline and a banana bag. Seizure pads are in place. Patient patient is calm and conversant, he is agreeable to stay in the hospital and understands that this is in his best interest. He has a CPSo place and once he is medically cleared will need mental health assessment. Mild hypomagnesemia, 1.7, supplemented mild elevation in transaminases consistent with alcoholism 57 and 90 per AST and ALT respectively ethyl alcohol of 36, decreased from 200 this morning,, supplemented with magnesium, CBC patient has remained on telemetry monitoring and will require i ntensive care placement secondary to phenobarb and acute alcohol withdrawal. Patient accepted by Dr. Sebastian torres, admitting hospitalist. Quality:[facility] Health Related Social Needs: No Data to Display Critical Care Time Critical Care Time Attestation: 35 minutes of critical care time secondary to acute alcohol withdrawal requiring phenobarb administration, telemetry monitoring, ICU admission, diagnostic lab interpretation review [facility] All Active Problems (Updated 02/23/24 @ 22:33 by ALEA Tobin) Alcohol withdrawal (Acute) Depression with suicidal ideation (Chronic) Hypomagnesemia (Acute) Chronic alcoholism (Chronic) Chronic alcoholism with psychosis (Acute) Alcohol abuse (Chronic) Substance use disorder (Chronic) Chronic marijuana use. + CRAFFT for alcohol use Anxiety (Acute) Medical History (Updated 02/23/24 @ 22:33 by ALEA Tobin) Closed right arm fracture Closed left arm fracture X2 Varicella AGE 4 Family History Mother No problems noted. Father Essential hypertension Hyperlipidemia Other ALS (amyotrophic lateral sclerosis) paternal Alcohol abuse paternal, maternal Essential hypertension paternal Personal history of malignant neoplasm PGF-skin Heart disease [id number]-UYVP - goes thru the male line paternal cousin with SVT Hyperlipidemia PGM Mental disorder pat uncle- anxiety, pat great uncle commited suicide Myocardial infarction PGF, maternal side Stroke PGGF Cardiomyopathy PGF-ZEUS, all of his siblings as well Asthma brother-outgrown, paternal side Social History Smoking/Tobacco Use Status: Current every day Tobacco Type: cigarettes Smoking risk assessment performed?: Yes Alcohol Intake: current Alcohol Intake frequency: 3 or more drinks per day Alcohol type: beer and hard liquor Drug use: Occasionally Substance use type: marijuana Details: a little last night Do you feel safe at home: Yes Do you feel safe in your relationship?: Yes PAWSS Have you Been Recently Intoxicated or Drunk Within the Last 30 days?: Yes Have you Ever Experienced Previous Episodes of Alcohol Withdrawal?: Yes Have you ever Experienced Withdrawal Seizures?: No Have you ever Experienced Delirium Tremens(DT)s?: Yes Have you ever undergone Alcohol Rehabilitation Treatment (i.e, inpt ot outpatient treatment programs)?: No Have you ever Experienced Blackouts?: Yes Have you ever Combined Alcohol with other Downers within the last 90 days?: Yes Have you ever Combined Alcohol with any other Substance of Abuse during the last 90 days?: Yes Positive Blood Alcohol level on Presentation? [PCS.BAL]: Yes Evidence of Increased Autonomic Activity (i.e. HR>120, tremor, sweating, agitation, nausea)?: Yes Result: 8
[2024-02-24] VITALS (54 sets, daily range): BP systolic 104–158; BP diastolic 56–122; PULSE 55–91; RESP 9–21; TEMP 35.9–37.2; O2SAT 94–100
[2024-02-24] MEDS: Nicotine 21 MG/24 HR PATCH TD ×2 (03:10→09:46)
[2024-02-24 04:45] LABS: HCT 38.5 % (40.0-50.0); HGB 13.4 g/dL (13.5-17.5); MCH 32.8 pg (27.0-33.0); MCHC 34.8 % (32.0-36.0); MCV 94 fL (80-95); MPV 8.1 fL (8.0-11.0); Platelet Count 158 10^3/uL (130-400); RBC 4.09 10^6/uL (4.36-5.78); RDW 12.9 % (11.8-14.1); RDW-SD 44.6 fL; WBC 6.77 10^3/uL (4.4-10.8)
[2024-02-24 05:11] LABS: ALT 69 U/L (16-63); AST 42 U/L (15-37); Albumin 3.4 g/dL (3.4-5.0); Alkaline Phosphatase 63 U/L (46-116); Anion Gap 7.6 mmol/L (3-11); BUN 15 mg/dL (7-18); Bilirubin, Total 1.32 mg/dL (0.2-1.0); CO2 27.4 mmol/L (21.0-32.0); CREATININE 0.7 mg/dL (0.70-1.30); Calcium 8.3 mg/dL (8.5-10.1); Chloride 104 mmol/L (98-107); Estimated GFR 131.95 (mL/min/1.73m2); Glucose 92 mg/dL (74-106); Magnesium 2.1 mg/dL (1.8-2.4); PHOSPHORUS 4.1 mg/dL (2.6-4.7); Potassium 3.5 mmol/L (3.5-5.1); Sodium 139 mmol/L (136-145); Total Protein 6.4 g/dL (6.4-8.2)
[2024-02-24 05:26] LABS: Prothrombin Time 10.4 sec (9.1-11.1)
[2024-02-24] MEDS: Normal Saline 1,000 ML 150 ML IV (05:58)
--- NOTE | 2024-02-24 09:08 | INITIAL_ITS ---
Date of service: 02/24/24 Time of Service: 09:08 Care Management Initial Assmt Initial Assessment Reason for Hospitalization: alcohol withdrawal/SI/HI Functional Status/Living Situation Patient Presentation: Dionicio was sitting up in a chair when CM met with him. He was in paper scrubs and appeared a bit anxious. Dionicio was very forthcoming with issues surrounding his alcohol use, stating that he has been struggling with it for many years. He also shared that his parents both drink alcohol as well, although his mother's consumption is not excessive. Dionicio verbalized wanting inpatient treatment for both depression and SI as well as the YAW. He has been to [facility] once before when he was 18 and found it helpful. Dionicio recently lost his job because of his drinking and is very concerned about the impact it is having on his health. His only concern about going into treatment is that he is a heavy nicotine user and really misses smoking. He is hoping there may be an op portunity for him to have a cigarette before he goes into treatment. CM did not set the expectation that that would be possible; it would be a question for [facility] and his provider. Town of Residence: [place] Resides with: Parent (lives with Dad) Employment Status: Unemployed Instrumental Activities of Daily Living (ADLs): Independent Medications Medication Management: No Issues/Barriers identified Advance Directives Advance Directives: Do you have an Advance Directive: N 08/19/16 16:31 AD On File at [facility]: N 08/19/16 16:31 Date Asked 02/23/24 02/23/24 19:14 AD Date Reviewed COLST On File at [facility] COLST Date Scanned Code Status Resuscitation Status Full Code Insurance Coverage/Financial Issues Insurance: Medicaid Care Team Visit Care Team Role Provider Type XIOMARA MURRY NP Primary Care Provider NON-[facility] STAFF PHYSICIAN ALEA Tobin Emergency Provider [facility] Holden Haynes Admit Provider NON-[facility] STAFF PHYSICIAN Attending Provider Discharge Potential Discharge Needs: Other (will possibly require inpatient psychiatric stabilization for SI) Anticipated Barriers to Discharge: Bed availability and Medical Status Patient/Family Education Needs: Review discharge instructions, discuss Ask Me Three Transportation: Other (to be determined by disposition) Plan: Dionicio was admitted with alcohol withdrawal but he has also verbalized suicidal ideation. When he is medically cleared he will be screened by [facility]. CM will follow and continue to assess for discharge needs. PFSH All Active Problems (Updated 02/24/24 @ 09:23 by Holden Haynes) Tobacco abuse (Chronic) Asthma (Chronic) Alcohol withdrawal (Acute) Depression with suicidal ideation (Chronic) Hypomagnesemia (Acute) Chronic alcoholism (Chronic) Chronic alcoholism with psychosis (Acute) Alcohol abuse (Chronic) Substance use disorder (Chronic) Chronic marijuana use. + CRAFFT for alcohol use Anxiety (Acute) Medical History (Updated 02/24/24 @ 09:23 by Holden Haynes) Closed right arm fracture Closed left arm fracture X2 Varicella AGE 4 Family History Mother No problems noted. Father Essential hypertension Hyperlipidemia Other ALS (amyotrophic lateral sclerosis) paternal Alcohol abuse paternal, maternal Essential hypertension paternal Personal history of malignant neoplasm PGF-skin Heart disease vmvwjvur-[id number]-ETBA - goes thru the male line paternal cousin with SVT Hyperlipidemia PGM Mental disorder pat uncle- anxiety, pat great uncle commited suicide Myocardial infarction PGF, maternal side Stroke PGGF Cardiomyopathy PGF-ZEUS, all of his siblings as well Asthma brother-outgrown, paternal side Social History Smoking/Tobacco Use Status: Current every day Tobacco Type: cigarettes Smoking risk assessment performed?: Yes Alcohol Intake: current Alcohol Intake frequency: 3 or more drinks per day Alcohol type: beer and hard liquor Drug use: Occasionally Substance use type: marijuana Details: a little last night Housing: house Do you feel safe at home: Yes Do you feel safe in your relationship?: Yes SDOH(Care Management) Screening Will the Patient Participate in the Screening?: Yes Do you worry about having a steady place to live?: no Problems where you live: no known problems In the past 12 months, have you had to go without electric, gas, oil or water in your home?: no Have you or anyone in your house had to go without enough food to eat?: no Has lack of transportation kept you from medical appointments or from doing things needed for daily living?: no Has anyone in your support network made you feel unsafe for any reason?: no
[2024-02-24] MEDS: Enoxaparin 40 MG/0.4 ML SYR SC (09:47)
[2024-02-24] MEDS: Multivitamin TAB 1 TAB PO (09:48)
[2024-02-24] MEDS: Folic Acid 1 MG TAB PO (09:48)
[2024-02-24] MEDS: Thiamine 100 MG TAB PO (09:48)
--- NOTE | 2024-02-24 11:00 | W.PM.PROGNOT ---
Date of Service Date of service: 02/24/24 Time of Service: 11:00 Assessment and Plan Assessment and plan (1) Alcohol withdrawal: Start date: 02/23/24 Status: Acute Assessment and plan: This is a 23-year-old gentleman who is a chronic alcoholic going through active alcohol withdrawal wanting to stop alcohol because of disruptive social aspects of his life as well as his work and wellbeing. He has stopped alcohol for a year and a half in the past that does not help with support systems. He has only attended AA meetings by remote access. He is interested in inpatient alcohol treatment and outpatient support at this time. He is going through active alcohol withdrawal and is on phenobarbital protocol doing well. He will be given supplements as needed and advance diet. He does not seem to be hallucinating and seems to be responding to the phenobarbital. He is hemodynamically stable and has not required additional phenobarbital since last night. I think he can be moved to med/surg today however he still needs one on one monitoring. If he is not requiring further phenobarbital tomorrow, then I will ask mental health to come evaluate him. I think he has a high potential for completion of a suicide or even a homicide if he does not get inpatient mental health. I have resumed his SSRI. Qualifiers: Complication of substance-induced condition: with unspecified complication Qualified Code(s): F10.939 - Alcohol use, unspecified with withdrawal, unspecified (2) Depression with suicidal ideation: Status: Chronic (3) Chronic alcoholism: Status: Chronic (4) Tobacco abuse: Status: Chronic Assessment and plan: NicoDerm 21 mg patch every 24 hours. Advised long-term cessation. Subjective Subjective Interval history since last seen: Dionicio is depressed, sad, tearful. He wants help w/ his depression and his alcoholism. He knows that he has become a danger to himself and to others w/ his alcoholism and depression. he admits that he had a gun and was giving serious thoughts of shooting himself and prior to that he had threatened others. He would like to be admitted for inpatient psychiatric counseling and medications as well as help w/ his alcohol addiction. He has been to [facility] in the past w/ good experience. He has had periods of sobriety up to a year. He has been abusing alcohol since age of 13 but has been heavy drinker since age 19. He currently has been drinking a 750 mL daily of vodka or bourbon. Exam Narrative Exam Narrative: Tearful but engaging w/ me in conversation. he answers my questions readily and does not try to avoid me. He is tremulous at times but when he quits sobbing, his shakiness in his hands stops. this leads me to believe this is more a phenomenon of his anxiety rather than from DT's. Objective Last Vital Signs Temp 36.8 C 02/24/24 07:43 Pulse 63 02/24/24 06:01 Resp 13 02/24/24 05:00 BP 104/62 02/24/24 06:01 Pulse Ox 98 02/24/24 06:10 Laboratory Results - last 24 hr 02/23/24 02/23/24 02/23/24 19:54 21:05 23:45 WBC RBC Hgb Hct MCV MCH MCHC RDW Plt Count MPV PT INR Sodium 140 Potassium 4.1 Chloride 101 Carbon Dioxide 29.2 Anion Gap 9.8 BUN 13 Creatinine 1.0 Est GFR (CKD-EPI 2020) 107.78 Glucose 93 Calcium 8.8 Phosphorus Magnesium 1.7 L Total Bilirubin 0.88 AST 57 H ALT 90 H Alkaline Phosphatase 75 Total Protein 7.7 Albumin 4.2 TSH 0.90 Cancelled Urine Color Yellow Urine Clarity Clear Urine pH 8.5 H Ur Specific [place] 1.015 Urine Protein Trace Urine Ketones Negative Urine Blood Negative Urine Nitrite Negative Urine Bilirubin Negative Urine Urobilinogen 0.2 Ur Leukocyte Esterase Negative Urine Glucose Negative Urine Opiates Screen Negative Urine Methadone Screen Negative Ur Barbiturates Screen Positive A Ur Tricyclics Screen Negative Ur Amphetamines Screen Negative U Benzodiazepines Scrn Positive A Urine Cocaine Screen Negative Ur THC Screen Positive A Ethyl Alcohol 36.5 H 02/24/24 04:35 WBC 6.77 RBC 4.09 L Hgb 13.4 L D Hct 38.5 L MCV 94 MCH 32.8 MCHC 34.8 RDW 12.9 Plt Count 158 MPV 8.1 PT 10.4 INR 1.0 Sodium 139 Potassium 3.5 Chloride 104 Carbon Dioxide 27.4 Anion Gap 7.6 BUN 15 Creatinine 0.7 Est GFR (CKD-EPI 2020) 131.95 Glucose 92 Calcium 8.3 L Phosphorus 4.1 Magnesium 2.1 Total Bilirubin 1.32 H AST 42 H ALT 69 H Alkaline Phosphatase 63 Total Protein 6.4 Albumin 3.4 TSH Urine Color Urine Clarity Urine pH Ur Specific [place] Urine Protein Urine Ketones Urine Blood Urine Nitrite Urine Bilirubin Urine Urobilinogen Ur Leukocyte Esterase Urine Glucose Urine Opiates Screen Urine Methadone Screen Ur Barbiturates Screen Ur Tricyclics Screen Ur Amphetamines Screen U Benzodiazepines Scrn Urine Cocaine Screen Ur THC Screen Ethyl Alcohol PAWSS Have you Been Recently Intoxicated or Drunk Within the Last 30 days?: Yes Have you Ever Experienced Previous Episodes of Alcohol Withdrawal?: Yes Have you ever Experienced Withdrawal Seizures?: No Have you ever Experienced Delirium Tremens(DT)s?: Yes Have you ever undergone Alcohol Rehabilitation Treatment (i.e, inpt ot outpatient treatment programs)?: No Have you ever Experienced Blackouts?: Yes Have you ever Combined Alcohol with other Downers within the last 90 days?: Yes Have you ever Combined Alcohol with any other Substance of Abuse during the last 90 days?: Yes Positive Blood Alcohol level on Presentation? [PCS.BAL]: Yes Evidence of Increased Autonomic Activity (i.e. HR>120, tremor, sweating, agitation, nausea)?: Yes Result: 8 Time Spent with Patient Time Spent with Patient: 25-34 minutes Time was spent: preparing to see the patient(eg.review tests), ordering medications,tests, procedures, counseling the patient and care coordination
--- NOTE | 2024-02-24 12:04 | PHA.REVIEW2 ---
Pharmacy Admission Review Admission Clinical Review Admission Pharmacy Review: Alcohol withdrawal (Acute) Hypomagnesemia (Acute) No Known Allergies Allergy (Verified 02/23/24 19:56) Resuscitation Status Full Code Height 5 ft 10 in Weight 88 kg Pharmacy Admission Review Renal Dosing Renal Dosing: BUN 15 mg/dL (7-18) 02/24/24 04:35 Creatinine 0.7 mg/dL (0.70-1.30) 02/24/24 04:35 Medications needing adjustments: Reviewed (CrCl 181.8 mL/min) List of meds needing interventions: Current medications are okay Anticoagulation Anticoagulation: Hgb 13.4 g/dL (13.5-17.5) L D 02/24/24 04:35 Hct 38.5 % (40.0-50.0) L 02/24/24 04:35 Plt Count 158 10^3/uL (130-400) 02/24/24 04:35 INR 1.0 (0.9-1.1) 02/24/24 04:35 Creatinine 0.7 mg/dL (0.70-1.30) 02/24/24 04:35 DVT Prophylaxis: Reviewed (Hgb decreased from 16.2) Medications: Enoxaparin (40mg daily) Relevant Labs Relevant Labs: Sodium 139 mmol/L (136-145) 02/24/24 04:35 Potassium 3.5 mmol/L (3.5-5.1) 02/24/24 04:35 Chloride 104 mmol/L (98-107) 02/24/24 04:35 Phosphorus 4.1 mg/dL (2.6-4.7) 02/24/24 04:35 Magnesium 2.1 mg/dL (1.8-2.4) 02/24/24 04:35 Electrolytes, C-Reactive P, ESR: Reviewed Cardiac Review Cardiac Review: Blood Pressure 148/99 0801 Blood Pressure 115/67 0701 Blood Pressure 104/62 0601 Blood Pressure 107/62 0510 Blood Pressure 112/63 0357 Blood Pressure 112/63 0300 Blood Pressure 111/56 0201 Blood Pressure 144/82 0127 Blood Pressure 128/62 0101 BP, HR, EF%: Reviewed (HR WNL) QTc Review QTc: Reviewed (424 from 02/23/24) IV to PO Switch IV Medications: Reviewed (banana bag and phenobarbital) Home Meds Home Med List reviewed: Reviewed Relevent Home Meds Not ordered & why?: Librium (taper) and citalopram Current Meds Current Medication Order Review: Intervened Comments: Added IV admission set Reached out to provider to see if banana bag order could be discontinued as patient has orders for PO supplements. Waiting to hear back. Phenobarbital CIWA 7 @ 1005 Soft stop: 1095mg Hard stop: 1460mg So far: 730mg - no PRN doses given There were 4 loading dose orders that had been documented on, 3 in ED and 1 in ICU. On the pyxis report it showed that phenobarb had only been removed from ED pyxis twice and only once from ICU. It looks like the overnight ICU nurse documented twice on the 3rd loading dose (2 separate orders) but was only given once. ICU nurse tried to call overnight nurse to verify and see if they could undo documentation. They did not answer.
--- NOTE | 2024-02-24 16:01 | CMSP_ITS ---
Date of service: 02/24/24 Time of Service: 16:01 Care Management Safety Plan Status Status: Interim Reason for Wait Reason for Wait: Assessment/Screening Safety Plan Safety Plan: Dionicio was admitted with alcohol withdrawal. When being evaluated for admission he indicated that he had SI and HI. When medically stable, he will be screened by [facility] for possible inpatient psy CM will respond to assess patient after patient has been medically cleared and assessed by screener. If screener deems patient meets criteria for psychiatric stabilization CM will facilitate interdepartmental huddle with [facility] screener for safety planning considerations and meet with patient to review [facility] policy and safety plan, establish individual wishes for treatment and maintain p atient rights. In the interim; please note safety plan below to guide patient care while awaiting further assessment in the ED.? SAFETY PLAN: 1. Will remain on suicide precautions and in paper clothes.? 2. Will remain in room under direct supervision of one-on-one staff at all times provided by MARCEL, PRINCIPAL ASSOCIATE acquisitions editor. 3. May have paper cups, plates, finger foods as well as a cardboard spoon with which to eat meals. 4. Follow [facility] Management of the Admitted Behavioral Health Patient policy. 5. Comfort bath system only. 6. No personal belongings 7. Visitors: father and therapist (Maya Ibarra) may visit. 8. Phone contact limited to father, therapist (Maya Ibarra) and legal parts sales representative. 9. Due to VOLUNTARY status, if patient wishes to leave [facility], staff will contact [facility] Crisis Screener ([phone]) and On-Call Sales Enablement Specialist ([phone]) as soon as possible. In the event of elopement, notify [facility] Police ([phone]). ? If deemed appropriate for inpatient psychiatric care, safety plan will be established with patient, and care team, to adhere to patient goals, identify restrictions based on behavioral status, address nutrition, and determine allowed personal belongings, tools for hygiene and personal care. As well plan will determine level of activity including ambulation, level of supervision, visitors, and determine privileges based on level of acuity, behaviors and level of engagement by patient.
--- NOTE | 2024-02-24 16:20 | W.PC.ACHO ---
Registration Status: Primary Language: Preferred Language: ED Information & Data Chief Complaint PsychEval 02/23/24 22:32 Other Complaint ETOHWithdr 02/23/24 18:38 Triage Note SI/HI today. Thought about 02/23/24 18:38 cutting himself after being discharged today and requested he be transported back here for assessment and treatment. Wants to stay for help. Medical / Surgical History (Last Reviewed 02/23/24 @ 23:41 by Holden Haynes) Closed right arm fracture Closed left arm fracture Varicella Most Recent Vital Signs Temperature 37.2 C 02/24/24 15:10 Temperature Source Temporal Artery Scan 02/24/24 15:10 Pulse 73 02/24/24 15:10 Pulse 84 02/24/24 12:01 Respiratory Rate 16 02/24/24 15:10 Respiratory Effort Normal 02/23/24 22:30 Respiratory Depth Normal 02/23/24 22:30 Respiratory Pattern Normal 02/23/24 22:30 Blood Pressure 154/90 H 02/24/24 15:10 Blood Pressure Mean 121 02/24/24 12:01 Pulse Oximetry 99 02/24/24 15:10 Oxygen Delivery Method Room Air 02/24/24 15:10 Oxygen Flow Rate 0 02/24/24 15:10 Pain Level 0 02/24/24 15:10 Allergies No Known Allergies Allergy (Verified 02/23/24 19:56) Active Medications Generic Name Dose Route Start Last Admin Trade Name Freq PRN Reason Stop Dose Admin Enoxaparin Sodium 40 mg 02/24/24 08:30 02/24/24 09:47 Enoxaparin 40 Mg/0.4 Ml Syr SC 40 mg DAILY AUDI Administration Folic Acid 1 mg 02/24/24 08:30 02/24/24 09:48 Folic Acid 1 Mg Tab PO 03/01/24 08:31 1 mg QAM AUDI Administration Multivitamins 1 tab 02/24/24 08:30 02/24/24 09:48 Multivitamin Tab PO 03/01/24 08:31 1 tab QAM AUDI Administration Nicotine 21 mg 02/24/24 08:30 02/24/24 09:46 Nicotine 21 Mg/24 Hr Patch TD 21 mg DAILY AUDI Administration Thiamine HCl 100 mg 02/24/24 08:30 02/24/24 09:48 Thiamine 100 Mg Tab PO 03/01/24 08:31 100 mg QAM AUDI Administration IV IV Catheter Type [Left Forearm Saline Lock ] IV Catheter Type [Right Wrist] Peripheral IV IV Catheter Gauge [Left 18 Forearm] IV Catheter Gauge [Right Wrist 18 ] Diagnostics 02/24/24 02/23/24 02/23/24 Range/Units 04:35 23:45 21:05 WBC 6.77 (4.4-10.8) 10^3/uL RBC 4.09 L (4.36-5.78) 10^6/uL Hgb 13.4 L D (13.5-17.5) g/dL Hct 38.5 L (40.0-50.0) % MCV 94 (80-95) fL MCH 32.8 (27.0-33.0) pg MCHC 34.8 (32.0-36.0) % RDW 12.9 (11.8-14.1) % Plt Count 158 (130-400) 10^3/uL MPV 8.1 (8.0-11.0) fL PT 10.4 (9.1-11.1) sec INR 1.0 (0.9-1.1) Sodium 139 (136-145) mmol/L Potassium 3.5 (3.5-5.1) mmol/L Chloride 104 (98-107) mmol/L Carbon Dioxide 27.4 (21.0-32.0) mmol/L Anion Gap 7.6 (3-11) mmol/L BUN 15 (7-18) mg/dL Creatinine 0.7 (0.70-1.30) mg/dL Est GFR (CKD-EPI 2020) 131.95 (mL/min/1.73m2) Glucose 92 (74-106) mg/dL Calcium 8.3 L (8.5-10.1) mg/dL Phosphorus 4.1 (2.6-4.7) mg/dL Magnesium 2.1 (1.8-2.4) mg/dL Total Bilirubin 1.32 H (0.2-1.0) mg/dL AST 42 H (15-37) U/L ALT 69 H (16-63) U/L Alkaline Phosphatase 63 (46-116) U/L Total Protein 6.4 (6.4-8.2) g/dL Albumin 3.4 (3.4-5.0) g/dL TSH Cancelled (0.36-3.74) uIU/mL Urine Color Yellow (Yellow) Urine Clarity Clear (Clear) Urine pH 8.5 H (5-8) Ur Specific Mckinnon 1.015 (1.005-1.025) Urine Protein Trace (Neg-Trace) mg/dL Urine Ketones Negative (Negative) mg/dL Urine Blood Negative (Negative) Urine Nitrite Negative (Negative) Urine Bilirubin Negative (Negative) Urine Urobilinogen 0.2 (Up to 0.2) mg/dL Ur Leukocyte Esterase Negative (Negative) Urine Glucose Negative (Negative) mg/dL Urine Opiates Screen Negative (Negative) Urine Methadone Screen Negative (Negative) Ur Barbiturates Screen Positive A (Negative) Ur Tricyclics Screen Negative (Negative) Ur Amphetamines Screen Negative (Negative) U Benzodiazepines Scrn Positive A (Negative) Urine Cocaine Screen Negative (Negative) Ur THC Screen Positive A (Negative) Ethyl Alcohol (<10) mg/dL 02/23/24 Range/Units 19:54 WBC (4.4-10.8) 10^3/uL RBC (4.36-5.78) 10^6/uL Hgb (13.5-17.5) g/dL Hct (40.0-50.0) % MCV (80-95) fL MCH (27.0-33.0) pg MCHC (32.0-36.0) % RDW (11.8-14.1) % Plt Count (130-400) 10^3/uL MPV (8.0-11.0) fL PT (9.1-11.1) sec INR (0.9-1.1) Sodium 140 (136-145) mmol/L Potassium 4.1 (3.5-5.1) mmol/L Chloride 101 (98-107) mmol/L Carbon Dioxide 29.2 (21.0-32.0) mmol/L Anion Gap 9.8 (3-11) mmol/L BUN 13 (7-18) mg/dL Creatinine 1.0 (0.70-1.30) mg/dL Est GFR (CKD-EPI 2020) 107.78 (mL/min/1.73m2) Glucose 93 (74-106) mg/dL Calcium 8.8 (8.5-10.1) mg/dL Phosphorus (2.6-4.7) mg/dL Magnesium 1.7 L (1.8-2.4) mg/dL Total Bilirubin 0.88 (0.2-1.0) mg/dL AST 57 H (15-37) U/L ALT 90 H (16-63) U/L Alkaline Phosphatase 75 (46-116) U/L Total Protein 7.7 (6.4-8.2) g/dL Albumin 4.2 (3.4-5.0) g/dL TSH 0.90 (0.36-3.74) uIU/mL Urine Color (Yellow) Urine Clarity (Clear) Urine pH (5-8) Ur Specific Mckinnon (1.005-1.025) Urine Protein (Neg-Trace) mg/dL Urine Ketones (Negative) mg/dL Urine Blood (Negative) Urine Nitrite (Negative) Urine Bilirubin (Negative) Urine Urobilinogen (Up to 0.2) mg/dL Ur Leukocyte Esterase (Negative) Urine Glucose (Negative) mg/dL Urine Opiates Screen (Negative) Urine Methadone Screen (Negative) Ur Barbiturates Screen (Negative) Ur Tricyclics Screen (Negative) Ur Amphetamines Screen (Negative) U Benzodiazepines Scrn (Negative) Urine Cocaine Screen (Negative) Ur THC Screen (Negative) Ethyl Alcohol 36.5 H (<10) mg/dL Intake and Output - 24 Hour Total 02/23/24 18:34 thru 02/24/24 12:44 Intake Total 3340.5077 Output Total 1120 Balance 2220.5077 Weight 88 kg Intake: IV 2740.5077 Oral 600 Output: Urine 1120 Other: Urine Color Yellow Urine Appearance Clear Stool Size Large Stool Characteristics Soft Formed Brown Voiding Methods Urinal Falls Risk Assessment History of Falls No History 02/23/24 22:30 Contributing Factors Confusion 02/23/24 22:30 Ambulatory Aids Independent 02/23/24 22:30 Tubes/Lines None 02/23/24 22:30 Gait Evaluation No gait disturbance 02/23/24 22:30 Cognition No cognitive impairment 02/23/24 22:30 Fall Total Score 3 02/23/24 22:30 Level of Risk Standard/Low Risk 02/23/24 22:30 Problems (Last Reviewed 02/23/24 @ 23:41 by Holden Haynes) Tobacco abuse (Chronic) Asthma (Chronic) Alcohol withdrawal (Acute) Depression with suicidal ideation (Chronic) Hypomagnesemia (Acute) Chronic alcoholism (Chronic) Notes 02/23/24 20:10 Nursing Notes by Nishant Law Pt presented to the ED with his substance abuse counselor. Reported he typically drinks 150 ML of 40 proof liquer and up to 8 40 Oz 8% drinks every day. Pt has reduced alcohol intake over the past day, wants to get sober. Pt last drink was at 11:00 AM this morning. On presentation, extreme DT's initial CIWA 30. Pt reports suicidal ideations as well, has hx of self harm, hx of near-attempts. Pt has family hx of suicide on both sides of family. Pt reports he came way, way too close to committing suicide today. Reports he was compelled to grab the knife in his room and kill himself, reported he experienced visual hallucination of him actually carrying out the act. This scared him to contact his counselor for help, who was with him when he presented to the ED. Pt not placed in safety room due to need for medical management of alcohol withdrawal symptoms. Received initial loading dose of 290 mg phenobarbital in ED. 1:1 sitter with pt, reduced stimulation in room by turning the light off and lowering alarm volumes. Father also visited shortly. Pt education on withdrawal and safety provided. Nishant Law, DUSTINN, RN Nursing Note: Initialized on 02/23/24 20:10 - END OF NOTE v v v v v v v v v Sending and/or Receiving Nurses: Please use comment section below to note any information pertinent to the patient hand-off not included above. Information / Comments: Patient admitted self because of suicide ideation, stating wanting to shoot self in the head. He states that has been drinking pint to a gallon of vodka per day for the last 6 weeks. Lives with father who is an alcoholic. He does have a therapist but states that he has been avoiding them d/t use of alcohol. He is fully alert and oriented, with clear lungs and a regular heart rhythm, and normal bowel sounds with last BM today. He does have many self harm scars on right arm. He has IV access in both wrists. Currently on CIWA Q2, rating 8 this morning d/t anxiety but they have decreased to a 3. He has received 730 of phenobarbitol, with a soft limit of 1095 and hard limit of 1460. Has a nicotine patch on left shoulder. Report received from: Maya Trinh
[2024-02-24] MEDS: Normal Saline Flush 10 ML SYR IVP (21:22)
[2024-02-25] MEDS: Nicotine 2 MG LOZG SUC (04:48)
[2024-02-25 04:51] VITALS: BP 125/76; PULSE 82; RESP 16; TEMP 36.2; O2SAT 100
[2024-02-25 07:00] VITALS: BP 120/86; PULSE 73; RESP 16; TEMP 36.6; O2SAT 100
[2024-02-25] MEDS: Enoxaparin 40 MG/0.4 ML SYR SC (09:11)
[2024-02-25] MEDS: Nicotine 21 MG/24 HR PATCH TD (09:11)
[2024-02-25] MEDS: Folic Acid 1 MG TAB PO (09:12)
[2024-02-25] MEDS: Thiamine 100 MG TAB PO (09:12)
[2024-02-25] MEDS: Citalopram 20 MG TAB PO (09:12)
[2024-02-25] MEDS: Multivitamin TAB 1 TAB PO (09:12)
--- NOTE | 2024-02-25 10:26 | PDOC.CMPRO ---
Date of service: 02/25/24 Time of Service: 10:26 Care Management Progress Note Discharge Potential Discharge Needs: PCP F/U Appt Anticipated Barriers to Discharge: Bed availability Patient/Family Education Needs: Review discharge instructions, discuss Ask Me Three Transportation: Private vehicle Plan: Dionicio was admitted with alcohol withdrawal but he has also verbalized suicidal ideation. When he is medically cleared he will be screened by [facility]. CM will follow and continue to assess for discharge needs. SDOH(Care Management) Screening Will the Patient Participate in the Screening?: Yes Do you worry about having a steady place to live?: no Problems where you live: no known problems In the past 12 months, have you had to go without electric, gas, oil or water in your home?: no Have you or anyone in your house had to go without enough food to eat?: no Has lack of transportation kept you from medical appointments or from doing things needed for daily living?: no Has anyone in your support network made you feel unsafe for any reason?: no
--- NOTE | 2024-02-25 10:28 | PDOC.CMSAFE ---
Date of service: 02/25/24 Time of Service: 10:28 Care Management Safety Plan Status Status: Voluntary (+[id number]+) Reason for Wait Reason for Wait: Inpatient Admission Safety Plan Safety Plan: Dionicio was admitted with alcohol withdrawal. When being evaluated for admission he indicated that he had SI and HI. When medically stable, he will be screened by [facility] for possible inpatient psy CM will respond to assess patient after patient has been medically cleared and assessed by screener. If screener deems patient meets criteria for psychiatric stabilization CM will facilitate interdepartmental huddle with [facility] screener for safety planning considerations and meet with patient to review [facility] policy and safety plan, establish individual wishes for treatment and maintain patient rights. In the interim; please note safety plan below to guide patient care while awaiting further assessment in the ED.? SAFETY PLAN: 1. Will remain on suicide precautions and in paper clothes.? 2. Will remain in room under direct supervision of one-on-one staff at all times provided by MARCEL, EMPLOYMENT SECURITY OFFICER hay rake operator. 3. May have paper cups, plates, finger foods as well as a cardboard spoon with which to eat meals. 4. Follow [facility] Management of the Admitted Behavioral Health Patient policy. 5. Comfort bath system only. 6. No personal belongings 7. Visitors: father and therapist (Maya Ibarra) may visit. 8. Phone contact limited to father, therapist (Maya Ibarra) and legal customer relations representative. 9. Due to VOLUNTARY status, if patient wishes to leave [facility], staff will contact [facility] Crisis Screener ([phone]) and On-Call Clinical Resource Director ([phone]) as soon as possible. In the event of elopement, notify [facility] Police ([phone]). ? If deemed appropriate for inpatient psychiatric care, safety plan will be established with patient, and care team, to adhere to patient goals, identify restrictions based on behavioral status, address nutrition, and determine allowed personal belongings, tools for hygiene and personal care. As well plan will determine level of activity including ambulation, level of supervision, visitors, and determine privileges based on level of acuity, behaviors and level of engagement by patient.
--- NOTE | 2024-02-25 15:04 | DSE_ITS ---
Date of service: 02/25/24 Time of Service: 15:04 DS: Diagnosis Discharge Diagnosis (1) Alcohol withdrawal: Status: Acute (2) Depression with suicidal ideation: Status: Chronic (3) Chronic alcoholism: Status: Chronic (4) Tobacco abuse: Status: Chronic Discharge Plan Disposition Patient Disposition: Home Condition: Improving Discharge Details Reason For Visit: Alcohol Withdrawal, Suicidal Ideation Admit Date/Time: 02/23/24 21:37 Admit Provider: Holden Haynes Attending Provider: Holden Haynes Primary Care Provider: XIOMARA MURRY [facility] Course Hospital Course: See admission H&P for details of his presenting symptoms and signs. In summary this 23-year-old male with history of alcohol use disorder presenting with suicidal and homicidal ideation. He also was requesting alcohol detoxification. Patient was treated with phenobarbital per [facility] protocol. Patient did well and had no complications of alcohol withdrawal. He was restarted on his citalopram. [facility] presented with a mental health screener who felt that he was psychologically stable and could be appropriately managed as an outpatient with close follow-up counseling with both his personal addiction counselor Nancy Leo, as well as through [facility] and his PCP. Patient had marked improvement in his mood and outlook after treatment of his acute alcohol withdrawal. He was no longer suicidal and demonstrated well thought out and well-adjusted forward thinking plans towards managing his depression and his alcoholism. Patient was in contact with his addiction counselor and plan to go to his PCP office upon discharge to set up follow-up within the next week. Patient exhibited good support system from his family. Patient was discharged in markedly improved condition. Home Meds and New Rx's Prescriptions: Continued citalopram 20 mg tablet 20 mg PO DAILY Patient Comments: TAKE ONE TABLET BY MOUTH EVERY DAY albuterol sulfate [Ventolin HFA] 90 mcg/actuation HFA aerosol inhaler 2 inh INHALATION Q6H PRN Patient Comments: INHALE ONE TO TWO PUFFS BY MOUTH EVERY 4 TO 6 HOURS NEEDED Discontinued chlordiazepoxide HCl 25 mg capsule See Rx Instructions .ROUTE .COMPLEX PRNQty: 15 0RF Rx Instructions: take 50mg every 6 hours for 1 day, then 25mg every 6 hours on day 2, then 25mg every 12 hours on day 3 and then 25mg at night on day 4 Discharge Instructions Instructions: Depression in adults, Alcohol Use Disorder (DC), Suicide Prevention Additional Instructions: YOu were admitted to [facility] due to chronic alcohol use disorder, depression and suicidal ideation. You were treated for alcohol withdrawal w/ phenobarbital and did well with the withdrawal. You were started back up on your citalopram. You were seen by a mental health screener from [facility] and they felt that after conversing w/ you that you were deemed safe to be dischar ge and treated for your depression and alcohol use disorder as an outpatient. Per your discussion with me, it seems that you have a reasonable safety plan including the removal of knives and guns from the home or having them locked away where they are not readily accessible to you, should you become suicidal again. You seemed to have a good outlook towards achieving recovery from both your alcohol use disorder and dealing w/ your depression. You seem to have a good support system w/ your family including your father with whom you live and your mother and siblings and grandparents and you plan to see your addiction counselor, Nancy Leo. Please make and keep appointments w/ Nancy Leo as well as your primary care provider, Xiomara Murry. You have phone numbers to call MARCELO ([facility]) and you should call them daily for a daily check in. You have emergency numbers to call in the event of a crisis. You can return to [facility] anytime you feel that your alcoholism or depression are getting out of control. We wish you the best for your future in your recovery. Stand Alone Forms: Nursing Discharge Form Referrals: Nancy Leo [Other] (patient to call Nancy Leo today for follow up this week) [facility] [Outside] (patient to call daily for check in with counselor) XIOMARA MURRY NP [Primary Care Provider] - 03/03/24 8:00 am (needs follow up within the week) Activity:: Activity as Tolerated Equipment/Supplies:: No Equipment Needed Diet:: Normal Diet Discharge Orders Discharge Orders: Discharge Order (Routine); Ordered 02/25/24 Ordered By: Evan Grady Discharge Data Discharge Date/Time-TO BE ENTERED AT DEPARTURE: 02/25/24 15:10 DS: Summary Time Spent with Patient providing and/or coordinating discharge services: Less than 30 minutes Status at Discharge Functional status at discharge: independent ambulation Overall status at discharge: patient is back to baseline Mental Status: mental status grossly normal Speech and Movement: speech and movement normal Mood: congruent mood Affect: normal affect Quality:SDOH Health Related Social Needs: No Data to Display Exam Narrative Exam Narrative: Dionicio is alert, oriented, he is not tearful and he is actually hopeful. He talks about following through for outpatient help from his PCP and his addiction counselor, Nancy Leo in [place]. He has no tremors and no diaphoresis. He makes good eye contact and talked to me about all of his support systems at home including extended family, mother, grandparents, siblings. he has indicated that both he and his father have quit drinking alcohol and that the patient has made appointment to see his counselor and he has phone numbers from [facility] to call to check in daily with them. I am convinced that he will follow through w/ help for his alcohol addiction and his depression. Psych Mental Status: mental status grossly normal Speech and Movement: speech and movement normal Mood: congruent mood Affect: normal affect DS: Data Vitals/I&O Vitals and I&O: Vital Signs Temperature 36.6 C 02/25/24 07:00 Temperature Source Temporal Artery Scan 02/25/24 07:00 Pulse 73 02/25/24 07:00 Pulse 84 02/24/24 12:01 Respiratory Rate 16 02/25/24 07:00 Respiratory Effort Normal 02/23/24 22:30 Respiratory Depth Normal 02/23/24 22:30 Respiratory Pattern Normal 02/23/24 22:30 Blood Pressure 120/86 02/25/24 07:00 Blood Pressure Mean 121 02/24/24 12:01 Pulse Oximetry 100 02/25/24 07:00 Oxygen Delivery Method Room Air 02/25/24 07:00 Oxygen Flow Rate 0 02/25/24 07:00 Pain Level 0 02/25/24 04:51 Intake & Output 02/24/24 02/25/24 02/25/24 23:59 11:59 23:59 Intake Total 1000 / 6.5846 360 / 600 240 / 600 Output Total 200 / 1120 Balance 800 / 1616.5846 360 / 600 240 / 600 Weight 88.269 kg Intake: IV 1000 / 6.5846 Oral 360 / 600 240 / 600 Output: Urine 200 / 1120 Other: Urine Color Yellow Urine Appearance Clear Clear Comment unable to assess Stool Size Moderate Stool Characteristics Soft Formed Brown Voiding Methods Toilet Toilet PFSH All Active Problems (Updated 02/26/24 @ 00:05 by MEG STALLINGS) Tobacco abuse (Chronic) Asthma (Chronic) Alcohol withdrawal (Acute) Depression with suicidal ideation (Chronic) Chronic alcoholism (Chronic) Chronic alcoholism with psychosis (Acute) Alcohol abuse (Chronic) Substance use disorder (Chronic) Chronic marijuana use. + CRAFFT for alcohol use Anxiety (Acute) Medical History (Updated 02/26/24 @ 00:05 by MEG STALLINGS) Closed right arm fracture Closed left arm fracture X2 Varicella AGE 4 Family History Mother No problems noted. Father Essential hypertension Hyperlipidemia Other ALS (amyotrophic lateral sclerosis) paternal Alcohol abuse paternal, maternal Essential hypertension paternal Personal history of malignant neoplasm PGF-skin Heart disease egjyrrka-[id number] - goes thru the male line paternal cousin with SVT Hyperlipidemia PGM Mental disorder pat uncle- anxiety, pat great uncle commited suicide Myocardial infarction PGF, maternal side Stroke PGGF Cardiomyopathy PGF-ZEUS, all of his siblings as well Asthma brother-outgrown, paternal side Social History Smoking/Tobacco Use Status: Current every day Tobacco Type: cigarettes Smoking risk assessment performed?: Yes Alcohol Intake: current Alcohol Intake frequency: 3 or more drinks per day Alcohol type: beer and hard liquor Drug use: Occasionally Substance use type: marijuana Details: a little last night Housing: house Do you feel safe at home: Yes Do you feel safe in your relationship?: Yes Time Spent with Patient Time Spent with Patient: <45 minutes Time was spent: preparing to see the patient(eg.review tests), referring, communicating with other health rn urgent care, counseling the patient and care coordination
--- NOTE | 2024-02-25 18:36 | PDOC.CMDIS ---
Date of service: 02/25/24 Time of Service: 18:36 Care Management Discharge Plan Reason for Hospitalization: ETOH withdrawal/SI/HI Discharge Plan: Dionicio was screened by [facility] crisis screener Nupur and was able to be discharged home with a safety plan. He denied continued SI or Hi and will follow up with his community providers including his PCP and therapist. Dionicio lives with his father who is in full support of the safety plan and, per report, has removed or locked up all of the guns and knives in their home. Patient/Family Education Needs: Review discharge instructions, safety plan, discuss Ask Me Three SDMO Health Related Social Needs: No Data to Display MH Services (Omit if N/A) Current MH Services: [facility]
== END 2024-02-25 15:10 | disposition home or self-care (01) | DRG 897 ==
LOC: ER 22:33 → ICU 22:33 → MS 02-24 14:50
PROVIDERS: Admitting Provider Family Medicine; Emergency Provider Physician Assistant; PCP Nurse Practitioner Family; Visit Provider Family Medicine
DX: F10.239 Alcohol dependence with withdrawal, unspecified (principal); R45.851 Suicidal ideations; F32.A Depression, unspecified; E83.42 Hypomagnesemia; J45.20 Mild intermittent asthma, uncomplicated; F17.210 Nicotine dependence, cigarettes, uncomplicated; F12.90 Cannabis use, unspecified, uncomplicated
CPT/HCPCS: 00123; 36415; 80053; 80307; 85027; 93005; 96365; 96366; 96367; 96375; 99285; J1650; 80320; 81003; 83735; 84100; 84443; 85610; 93010; 99223; 99231; 99239; J1885; J2560; J3411; J3475